=== PATIENT | female | born 1955 | race Caucasian/White ===

== ENCOUNTER → 2019-11-27 12:15 | Outpatient (CLI) | payer MEDICARE, SELFPAY ==
--- NOTE | ~2019-11-27 | MR_ITS ---
EXAMINATION: MR lumbar spine wo con DATE: 11/27/2019 13:00 INDICATION: Lumbar spondylosis with radiculopathy. Low back pain. Left leg pain. TECHNIQUE: Magnetic resonance imaging (MRI) of the lumbar spine was performed without intravenous con trast. Sequences included sagittal T2-weighted FSE, sagittal T2-weighted FS FSE, sagittal T1-weighted FSE, and axial T2-weighted FSE. COMPARISON: Lumbar spine MRI 09/25/2017 FINDINGS: There is 4 degrees levocurvature of lumbar spine. There is 4 mm retrolisthesis of L4 on L5. There is a chronic compression fracture of T12 with 2/5 loss of height centrally. There is severely decreased disc height at L4-L5 with interbody fusion. There is mildly decreased disc height at L3-L4 and severely decreased disc height at L5-S1. The distal spinal cord signal intensity is normal. The c onus medullaris is at L1. The following disc levels are specifically discussed: L1-L2: The disc does not extend beyond the endplate margin. There is moderate left facet joint osteoa rthritis. There is mild left neural foraminal stenosis. There is no central canal stenosis. L2-L3: There is a left foraminal protrusion. There is severe right and moderate left facet joint oste oarthritis. There is mild left neural foraminal stenosis. There is no central canal stenosis. L3-L4: There is a central extrusion with 7 mm superior extension. There is severe bilateral facet holli nt osteoarthritis. There is mild bilateral neural foraminal stenosis. There is mild central canal purnima nosis. L4-L5: There is ankylosis of the facet joints with moderate hypertrophy. There is mild bilateral neur al foraminal stenosis. There is mild central canal stenosis. L5-S1: The disc is bulging and has an annular fissure. There is severe bilateral facet joint osteoart hritis. There is mild bilateral neural foraminal stenosis. There is mild central canal stenosis. IMPRESSION: 1. Severe lumbar spondylosis, stable from 09/25/2017. 2. Anterior and posterior fusion at L4-L5. Reviewed, dictated and finalized at location A.
== END ==
PROVIDERS: Visit Provider Nurse Practitioner Family
DX: M47.27 Other spondylosis with radiculopathy, lumbosacral region (principal); Z98.1 Arthrodesis status
CPT/HCPCS: 72148

== ENCOUNTER 2022-01-02 12:57 | Outpatient (RCR) | payer MEDICARE, SELFPAY | END 2022-03-19 08:11 | disposition home or self-care (01) | LOC: ANHDMC 12:57 | PROVIDERS: PCP Internal Medicine; Visit Provider Internal Medicine | DX: E11.65 Type 2 diabetes mellitus with hyperglycemia (principal); E78.5 Hyperlipidemia, unspecified; Z71.89 Other specified counseling | CPT/HCPCS: G0108 ==

== ENCOUNTER 2024-11-11 12:05 | Outpatient (CLI) | payer MEDICARE, SELFPAY ==
[2024-11-11 12:45] VITALS: PULSE 82; O2SAT 93
[2024-11-11 12:50] VITALS: PULSE 92; O2SAT 86
[2024-11-11 12:55] VITALS: PULSE 94; O2SAT 88
[2024-11-11 13:00] VITALS: PULSE 99; O2SAT 91
[2024-11-11 13:20] VITALS: PULSE 84; O2SAT 93
--- NOTE | 2024-11-11 13:44 | HOMEO2EVAL ---
Evaluation was performed at [facility] Home Oxygen Evaluation RC: Home Oxygen (O2) Evaluation Start: 11/11/24 13:36 Freq: Status: Active Protocol: RPE Activity Type Activity Date Activity User E-sign Co-sign Detail Recorded Client Recorded Date Recorded By Document 11/11/24 12:45 [email or web address] [email or web address] 11/11/24 13:44 DJO Document 11/11/24 12:50 [email or web address] [email or web address] 11/11/24 13:44 DJO Document 11/11/24 12:55 [email or web address] [email or web address] 11/11/24 13:44 DJO Document 11/11/24 13:00 [email or web address] [email or web address] 11/11/24 13:44 DJO Document 11/11/24 13:20 [email or web address] [email or web address] 11/11/24 13:44 DJO 11/11/24 11/11/24 11/11/24 12:45 12:50 12:55 Home O2 Evaluation [Oxygen] -Test Phase Resting Exercise Exercise -Oxygen Delivery Room Air Nasal Cannula -Oxygen Flow Rate (L/min) 1 [Pulse Oximetry] -Pulse Oximetry (90-100 %) 93 86 L 88 L [Pulse Rate] -Pulse Rate (60-100 beats/min) 82 92 94 [Evaluation] -Activity Tolerance [Exercise] -Ambulation Distance (feet) -Ambulation Distance (meters) [Charges] -Evaluation Charges O2 Evaluation by Pulmonary 11/11/24 11/11/24 13:00 13:20 Home O2 Evaluation [Oxygen] -Test Phase Exercise Resting -Oxygen Delivery Nasal Cannula Room Air -Oxygen Flow Rate (L/min) 2 [Pulse Oximetry] -Pulse Oximetry (90-100 %) 91 93 [Pulse Rate] -Pulse Rate (60-100 beats/min) 99 84 [Evaluation] -Activity Tolerance Fair [Exercise] -Ambulation Distance (feet) 250 -Ambulation Distance (meters) 76.19 [Charges] -Evaluation Charges
== END 2024-11-11 12:06 | disposition home or self-care (01) ==
PROVIDERS: PCP Internal Medicine; Visit Provider Internal Medicine
DX: R06.00 Dyspnea, unspecified (principal)
CPT/HCPCS: 94618

== ENCOUNTER 2024-12-02 01:48 | Day surgery (SDC) | payer MEDICARE, SELFPAY ==
[2024-08-04 14:17] VITALS: BMI 50.4
[2024-11-19 13:12] VITALS: BMI 49.9
--- OUTSIDE RECORDS SUMMARY | 2024-12-02 01:54 | XMS_ITS | Data Portability ---
Author Organization [facility] Address [address] [place] [address] Care Team Providers Care Explosive Operator Supervisor Name Role Phone DON ARELLANO Primary Care Provider [facility] Assessment Encounter Date Assessment Date Assessment LastModified by Organization Details LastModified Time 12/04/2023 12/04/2023 blood work. 6 minute walk records from previous clinic so we can see what is up with her screenings and immunizations follow up with me in 3 months continue current therapy for now all diagnosis and assessment and plan discussed [email or web address] Not available 12/05/2023 08:05:34 04/07/2024 04/07/2024 podiatry referral increase her insulin to 85 units of Tresiba healthy lifestyle care instructions other chronic problems discussed and chronic medicines remain unchanged follow up in 3 months [email or web address] Not available 04/11/2024 20:41:58 07/27/2024 07/27/2024 Blood work ordered states that she has a colonoscopy coming up on August 13. We will continue current therapy she will follow up in 4 months [email or web address] Not available 09/06/2024 21:54:13 10/29/2024 10/29/2024 Medications we will continue healthy lifestyle care instructions she needs to get her mammogram done she states that she has a colonoscopy set up for November blood work was reviewed 6 minute walk for her oxygen which she does not have with her today and follow up with me in 4 months [email or web address] Not available 10/29/2024 13:33:42 Plan of Treatment Reminders Order Date Submit Date Provider Last Modified By Organization Details Last Modified Time Details Appointments ANY 15 2024 10:15A Kit Arellano MD Not available Not available Not available Lab HbA1c (hemoglob in A1c), blood 2024 025 [facility], [address], [address], [place], [address], 08/20/2024 15:08:05 lipid panel, serum 2024 025 [facility], [address], [address], [place], [address], 08/20/2024 15:08:02 CMP, serum or plasma 2024 025 [facility], [address], [address], [place], [address], 08/20/2024 15:08:04 CBC w/ auto diff 2024 025 [facility], [address], [place], [address], 08/20/2024 15:08:07 TSH, ultra-sen sitive, serum 2024 025 [facility], [address], [place], [address], 08/20/2024 15:08:06 T3, free, serum or plasma 2024 025 [facility], [address], [place], [address], 08/20/2024 15:08:09 T4, free, serum 2024 025 [facility], [address], [place], [address], 08/20/2024 15:08:10 lipid panel, serum 2023 024 [facility], [address], [address], [place], [address], 12/05/2023 13:12:57 CMP, serum or plasma 2023 024 [facility], [address], [address], [place], [address], 12/05/2023 13:12:58 CBC w/ auto diff 2023 024 [facility], [address], [address], [place], [address], 12/05/2023 13:13:00 unlisted lab - T4, free 2023 024 [facility], [address], [address], [place], [address], 12/05/2023 13:12:57 T3, free, serum or plasma 2023 024 [facility], [address], [address], [place], [address], 12/05/2023 13:13:01 TSH, ultra-sen sitive, serum 2023 024 [facility], [address], [address], [place], [address], 12/05/2023 13:13:00 HbA1c (hemoglob in A1c), blood 2023 024 [facility], [address], [address], [place], [address], 12/05/2023 13:12:59 Referral podiatris t referral 2023 024 [facility] Carlos Alberto Huston DPM, [address], [address], [place], [address], 08/26/2024 17:58:04 Procedures colonosco py screening (PROC) 2023 024 [facility], [address], [place], [address], 09/21/2024 16:23:20 Surgeries None recorded. Imaging MAMMO, screening , digital, bilateral 2024 025 [facility] [place] (Imaging), [facility] [address], [place], [address], 12/01/2024 15:23:33 Medication Orders Tresiba FlexTouch U-100 insulin 100 unit/mL (3 mL) subcutane ous pen 2023 024 [email or web address] [facility], [address] [facility], [place], [address], 04/07/2024 12:59:23 Patient TargetsNo targets recorded. Patient Instructions Encounter Date Encounter Id Patient Instructions Last Modified By Organization Details Last Modified Time 12/04/2023 [id number] 6 minute walk test* [email or web address] Not available 04/15/2024 15:42:16 04/07/2024 [id number] A healthy lifestyle: care instructions [email or web address] Not available 04/07/2024 12:59:23 07/27/2024 [id number] A healthy lifestyle: care instructions [email or web address] Not available 07/27/2024 16:29:30 10/29/2024 [id number] 6 minute walk test* [email or web address] Not available 11/17/2024 14:12:55 A healthy lifestyle: care instructions [email or web address] Not available 10/29/2024 11:48:35 Reason for Referral Control Director Referral for Type 2 diabetes mellitus Referring Physician: Don Arellano, Internal Medicine, Encounter Date: 04/07/2024 Results Created Date Observation Date Name Description Value Unit Range Abnormal Flag Note LastModifiedBy Organization Detail LastModifiedTime 12/04/19 24 12/05/2023 LIPID PANEL cholesterol, total 194 mg/dL 100-19 9 Not Available [facility] ([facility]) [address] [place], [address], 12/05/2023 13:12:56 12/04/19 24 12/05/2023 LIPID PANEL triglyceride s 156 mg/dL 0-149 above high normal Not Available [facility] ([facility]) [address] [place], [address], 12/05/2023 13:12:56 12/04/19 24 12/05/2023 LIPID PANEL HDL cholesterol 59 mg/dL >39 Not Available [facility] ([facility]) [address] [place], [address], 12/05/2023 13:12:56 12/04/19 24 12/05/2023 LIPID PANEL VLDL cholesterol angelina 27 mg/dL 5-40 Not Available [facility] ([facility]) [address] [place], [address], 12/05/2023 13:12:56 12/04/19 24 12/05/2023 LIPID PANEL LDL chol calc ([facility]) 108 mg/dL 0-99 above high normal Not Available [facility] ([facility]) [address] [place], [address], 12/05/2023 13:12:56 12/04/19 24 12/05/2023 T4, FREE T4,free(dire ct) 1.42 NG/dL 0.82-1 .77 Not Available [facility] ([facility]) [address] [place], [address], 12/05/2023 13:12:57 12/04/19 24 12/05/2023 COMP. METAB OLIC PANEL (14) glucose 362 mg/dL 70-99 above high normal Not Available [facility] ([facility]) [address] [place], [address], 12/05/2023 13:12:58 12/04/19 24 12/05/2023 COMP. METAB OLIC PANEL (14) BUN 10 mg/dL 8-27 Not Available [facility] ([facility]) [address] [place], [address], 12/05/2023 13:12:58 12/04/19 24 12/05/2023 COMP. METAB OLIC PANEL (14) creatinine 0.87 mg/dL 0.57-1 .00 Not Available [facility] ([facility]) [address] [place], [address], 12/05/2023 13:12:58 12/04/19 24 12/05/2023 COMP. METAB OLIC PANEL (14) eGFR 72 mL/mi n/1.7 3 >59 Not Available [facility] ([facility]) [address] [place], [address], 12/05/2023 13:12:58 12/04/19 24 12/05/2023 COMP. METAB OLIC PANEL (14) BUN/creatini ne ratio 11 12-28 below low normal Not Available [facility] ([facility]) [address] [place], [address], 12/05/2023 13:12:58 12/04/19 24 12/05/2023 COMP. METAB OLIC PANEL (14) sodium 134 mmol/ L 134-14 4 Not Available [facility] ([facility]) [address] [place], [address], 12/05/2023 13:12:58 12/04/19 24 12/05/2023 COMP. METAB OLIC PANEL (14) potassium 4.8 mmol/ L 3.5-5. 2 Not Available [facility] ([facility]) [address] [place], [address], 12/05/2023 13:12:58 12/04/19 24 12/05/2023 COMP. METAB OLIC PANEL (14) chloride 92 mmol/ L 96-106 below low normal Not Available [facility] ([facility]) [address], [place], [address], 12/05/2023 13:12:58 12/04/19 24 12/05/2023 COMP. METAB OLIC PANEL (14) carbon dioxide, total 26 mmol/ L 20-29 Not Available [facility] ([facility]) [address], [place], [address], 12/05/2023 13:12:58 12/04/19 24 12/05/2023 COMP. METAB OLIC PANEL (14) calcium 9.6 mg/dL 8.7-10 .3 Not Available [facility] ([facility]) [address] [place], [address], 12/05/2023 13:12:58 12/04/19 24 12/05/2023 COMP. METAB OLIC PANEL (14) protein, total 7.8 g/dL 6.0-8. 5 Not Available [facility] ([facility]) [address] [place], [address], 12/05/2023 13:12:58 12/04/19 24 12/05/2023 COMP. METAB OLIC PANEL (14) albumin 3.8 g/dL 3.9-4. 9 below low normal Not Available [facility] ([facility]) [address] [place], [address], 12/05/2023 13:12:58 12/04/19 24 12/05/2023 COMP. METAB OLIC PANEL (14) globulin, total 4.0 g/dL 1.5-4. 5 Not Available [facility] ([facility]) [address], [place], [address], 12/05/2023 13:12:58 12/04/19 24 12/05/2023 COMP. METAB OLIC PANEL (14) bilirubin, total 0.3 mg/dL 0.0-1. 2 Not Available [facility] ([facility]) [address] [place], [address], 12/05/2023 13:12:58 12/04/19 24 12/05/2023 COMP. METAB OLIC PANEL (14) alkaline phosphatase 222 IU/L 44-121 above high normal Not Available [facility] ([facility]) [address] [place], [address], 12/05/2023 13:12:58 12/04/19 24 12/05/2023 COMP. METAB OLIC PANEL (14) AST (SGOT) 60 IU/L 0-40 above high normal Not Available [facility] ([facility]) [address] [place], [address], 12/05/2023 13:12:58 12/04/19 24 12/05/2023 COMP. METAB OLIC PANEL (14) ALT (SGPT) 58 IU/L 0-32 above high normal Not Available [facility] ([facility]) [address] [place], [address], 12/05/2023 13:12:58 12/04/19 24 12/05/2023 HEMOG LOBIN A1C hemoglobin A1C 12.5 % 4.8-5. 6 above high normal Predi abete s: 5.7 - 6.4 Diabe ivanna: >6.4 Glyce zeb contr ol for adult s with diabe ivanna: <7.0 Not Available [facility] ([facility]) [address] [place], [address], 12/05/2023 13:12:59 12/04/19 24 12/05/2023 TSH TSH 8.070 uIU/m L 0.450- 4.500 above high normal Not Available [facility] ([facility]) [address] [place], [address], 12/05/2023 13:13:00 12/04/19 24 12/05/2023 CBC WITH DIFFE RENTI AL/PL ATELE T WBC 12.7 x10e3 /uL 3.4-10 .8 above high normal Not Available [facility] ([facility]) [address] [facility], [place], [address], 12/05/2023 13:13:00 12/04/19 24 12/05/2023 CBC WITH DIFFE RENTI AL/PL ATELE T RBC 4.37 x10e6 /uL 3.77-5 .28 Not Available [facility] ([facility]) [address] [place], [address], 12/05/2023 13:13:00 12/04/19 24 12/05/2023 CBC WITH DIFFE RENTI AL/PL ATELE T hemoglobin 13.0 g/dL 11.1-1 5.9 Not Available [facility] ([facility]) [address] [facility], [place], [address], 12/05/2023 13:13:00 12/04/19 24 12/05/2023 CBC WITH DIFFE RENTI AL/PL ATELE T hematocrit 41.0 % 34.0-4 6.6 Not Available [facility] ([facility]) [address] [place], [address], 12/05/2023 13:13:00 12/04/19 24 12/05/2023 CBC WITH DIFFE RENTI AL/PL ATELE T MCV 94 fL 79-97 Not Available [facility] ([facility]) [address] [place], [address], 12/05/2023 13:13:00 12/04/19 24 12/05/2023 CBC WITH DIFFE RENTI AL/PL ATELE T MCH 29.7 pg 26.6-3 3.0 Not Available [facility] ([facility]) [address] [place], [address], 12/05/2023 13:13:00 12/04/19 24 12/05/2023 CBC WITH DIFFE RENTI AL/PL ATELE T MCHC 31.7 g/dL 31.5-3 5.7 Not Available [facility] ([facility]) [address] [facility], [place], [address], 12/05/2023 13:13:00 12/04/19 24 12/05/2023 CBC WITH DIFFE RENTI AL/PL ATELE T RDW 11.4 % 11.7-1 5.4 below low normal Not Available [facility] ([facility]) [address] [facility], [place], [address], 12/05/2023 13:13:00 12/04/19 24 12/05/2023 CBC WITH DIFFE RENTI AL/PL ATELE T platelets 324 x10e3 /uL 150-45 0 Not Available [facility] ([facility]) [address] [facility], [place], [address], 12/05/2023 13:13:00 12/04/19 24 12/05/2023 CBC WITH DIFFE RENTI AL/PL ATELE T neutrophils 63 % notest ab. Not Available [facility] ([facility]) [address] [facility], [place], [address], 12/05/2023 13:13:00 12/04/19 24 12/05/2023 CBC WITH DIFFE RENTI AL/PL ATELE T lymphs 29 % notest ab. Not Available [facility] ([facility]) [address] [place], [address], 12/05/2023 13:13:00 12/04/19 24 12/05/2023 CBC WITH DIFFE RENTI AL/PL ATELE T monocytes 4 % notest ab. Not Available [facility] ([facility]) [address] [place], [address], 12/05/2023 13:13:00 12/04/19 24 12/05/2023 CBC WITH DIFFE RENTI AL/PL ATELE T eos 2 % notest ab. Not Available [facility] ([facility]) [address] [place], [address], 12/05/2023 13:13:00 12/04/19 24 12/05/2023 CBC WITH DIFFE RENTI AL/PL ATELE T basos 1 % notest ab. Not Available [facility] ([facility]) [address] [place], [address], 12/05/2023 13:13:00 12/04/19 24 12/05/2023 CBC WITH DIFFE RENTI AL/PL ATELE T neutrophils (absolute) 8.0 x10e3 /uL 1.4-7. 0 above high normal Not Available [facility] ([facility]) [address] [place], [address], 12/05/2023 13:13:00 12/04/19 24 12/05/2023 CBC WITH DIFFE RENTI AL/PL ATELE T lymphs (absolute) 3.7 x10e3 /uL 0.7-3. 1 above high normal Not Available [facility] ([facility]) [address] [place], [address], 12/05/2023 13:13:00 12/04/19 24 12/05/2023 CBC WITH DIFFE RENTI AL/PL ATELE T monocytes(ab solute) 0.5 x10e3 /uL 0.1-0. 9 Not Available [facility] ([facility]) [address] [place], [address], 12/05/2023 13:13:00 12/04/19 24 12/05/2023 CBC WITH DIFFE RENTI AL/PL ATELE T eos (absolute) 0.3 x10e3 /uL 0.0-0. 4 Not Available [facility] ([facility]) [address] [place], [address], 12/05/2023 13:13:00 12/04/19 24 12/05/2023 CBC WITH DIFFE RENTI AL/PL ATELE T baso (absolute) 0.1 x10e3 /uL 0.0-0. 2 Not Available [facility] ([facility]) [address] [facility], [place], [address], 12/05/2023 13:13:00 12/04/19 24 12/05/2023 CBC WITH DIFFE RENTI AL/PL ATELE T immature granulocytes 1 % notest ab. Not Available [facility] ([facility]) [address] [facility], [place], [address], 12/05/2023 13:13:00 12/04/19 24 12/05/2023 CBC WITH DIFFE RENTI AL/PL ATELE T immature grans (abs) 0.1 x10e3 /uL 0.0-0. 1 Not Available [facility] ([facility]) [address] [facility], [place], [address], 12/05/2023 13:13:00 12/04/19 24 12/05/2023 TRIIO DOTHY VICKY E (T3), FREE triiodothyro nine (T3), free 3.6 pg/mL 2.0-4. 4 Not Available [facility] ([facility]) [address] [place], [address], 12/05/2023 13:13:01 08/20/19 25 08/20/2024 LIPID PANEL cholesterol, total 172 mg/dL 100-19 9 Not Available [facility] ([facility]) [address] [place], [address], 08/20/2024 15:08:02 08/20/19 25 08/20/2024 LIPID PANEL triglyceride s 143 mg/dL 0-149 Not Available [facility] ([facility]) [address] [place], [address], 08/20/2024 15:08:02 08/20/19 25 08/20/2024 LIPID PANEL HDL cholesterol 49 mg/dL >39 Not Available [facility] ([facility]) [address] [place], [address], 08/20/2024 15:08:02 08/20/19 25 08/20/2024 LIPID PANEL VLDL cholesterol angelina 25 mg/dL 5-40 Not Available [facility] ([facility]) [address] [place], [address], 08/20/2024 15:08:02 08/20/19 25 08/20/2024 LIPID PANEL LDL chol calc ([facility]) 98 mg/dL 0-99 Not Available [facility] ([facility]) [address] [place], [address], 08/20/2024 15:08:02 08/20/19 25 08/20/2024 COMP. METAB OLIC PANEL (14) glucose 209 mg/dL 70-99 above high normal Not Available [facility] ([facility]) [address] [place], [address], 08/20/2024 15:08:04 08/20/19 25 08/20/2024 COMP. METAB OLIC PANEL (14) BUN 16 mg/dL 8-27 Not Available [facility] ([facility]) [address] [place], [address], 08/20/2024 15:08:04 08/20/19 25 08/20/2024 COMP. METAB OLIC PANEL (14) creatinine 0.89 mg/dL 0.57-1 .00 Not Available [facility] ([facility]) [address] [place], [address], 08/20/2024 15:08:04 08/20/19 25 08/20/2024 COMP. METAB OLIC PANEL (14) eGFR 70 mL/mi n/1.7 3 >59 Not Available [facility] ([facility]) [address] [facility], [place], [address], 08/20/2024 15:08:04 08/20/19 25 08/20/2024 COMP. METAB OLIC PANEL (14) BUN/creatini ne ratio 18 12-28 Not Available [facility] ([facility]) [address] [facility], [place], [address], 08/20/2024 15:08:04 08/20/19 25 08/20/2024 COMP. METAB OLIC PANEL (14) sodium 138 mmol/ L 134-14 4 Not Available [facility] ([facility]) [address] [facility], [place], [address], 08/20/2024 15:08:04 08/20/19 25 08/20/2024 COMP. METAB OLIC PANEL (14) potassium 4.6 mmol/ L 3.5-5. 2 Not Available [facility] ([facility]) [address] [facility], [place], [address], 08/20/2024 15:08:04 08/20/19 25 08/20/2024 COMP. METAB OLIC PANEL (14) chloride 97 mmol/ L 96-106 Not Available [facility] ([facility]) [address] [facility], [place], [address], 08/20/2024 15:08:04 08/20/19 25 08/20/2024 COMP. METAB OLIC PANEL (14) carbon dioxide, total 26 mmol/ L 20-29 Not Available [facility] ([facility]) [address] [facility], [place], [address], 08/20/2024 15:08:04 08/20/19 25 08/20/2024 COMP. METAB OLIC PANEL (14) calcium 8.9 mg/dL 8.7-10 .3 Not Available [facility] ([facility]) [address] [facility], [place], [address], 08/20/2024 15:08:04 08/20/19 25 08/20/2024 COMP. METAB OLIC PANEL (14) protein, total 7.2 g/dL 6.0-8. 5 Not Available [facility] ([facility]) [address] [place], [address], 08/20/2024 15:08:04 08/20/19 25 08/20/2024 COMP. METAB OLIC PANEL (14) albumin 3.8 g/dL 3.9-4. 9 below low normal Not Available [facility] ([facility]) [address] [place], [address], 08/20/2024 15:08:04 08/20/19 25 08/20/2024 COMP. METAB OLIC PANEL (14) globulin, total 3.4 g/dL 1.5-4. 5 Not Available [facility] ([facility]) [address] [place], [address], 08/20/2024 15:08:04 08/20/19 25 08/20/2024 COMP. METAB OLIC PANEL (14) bilirubin, total <0.2 mg/dL 0.0-1. 2 Not Available [facility] ([facility]) [address] [place], [address], 08/20/2024 15:08:04 08/20/19 25 08/20/2024 COMP. METAB OLIC PANEL (14) alkaline phosphatase 208 IU/L 44-121 above high normal Not Available [facility] ([facility]) [address] [place], [address], 08/20/2024 15:08:04 08/20/19 25 08/20/2024 COMP. METAB OLIC PANEL (14) AST (SGOT) 33 IU/L 0-40 Not Available [facility] ([facility]) [address] [place], [address], 08/20/2024 15:08:04 08/20/19 25 08/20/2024 COMP. METAB OLIC PANEL (14) ALT (SGPT) 33 IU/L 0-32 above high normal Not Available [facility] ([facility]) [address] [place], [address], 08/20/2024 15:08:04 08/20/19 25 08/20/2024 HEMOG LOBIN A1C hemoglobin A1C 7.9 % 4.8-5. 6 above high normal Predi abete s: 5.7 - 6.4 Diabe ivanna: >6.4 Glyce zeb contr ol for adult s with diabe ivanna: <7.0 Not Available [facility] ([facility]) [address] [place], [address], 08/20/2024 15:08:05 08/20/19 25 08/20/2024 TSH TSH 6.400 uIU/m L 0.450- 4.500 above high normal Not Available [facility] ([facility]) [address] [place], [address], 08/20/2024 15:08:06 08/20/19 25 08/20/2024 CBC WITH DIFFE RENTI AL/PL ATELE T WBC 11.1 x10e3 /uL 3.4-10 .8 above high normal Not Available [facility] ([facility]) [address] [place], [address], 08/20/2024 15:08:07 08/20/19 25 08/20/2024 CBC WITH DIFFE RENTI AL/PL ATELE T RBC 3.86 x10e6 /uL 3.77-5 .28 Not Available [facility] ([facility]) [address] [place], [address], 08/20/2024 15:08:07 08/20/19 25 08/20/2024 CBC WITH DIFFE RENTI AL/PL ATELE T hemoglobin 11.3 g/dL 11.1-1 5.9 Not Available [facility] ([facility]) [address] [facility], [place], [address], 08/20/2024 15:08:07 08/20/19 25 08/20/2024 CBC WITH DIFFE RENTI AL/PL ATELE T hematocrit 35.8 % 34.0-4 6.6 Not Available [facility] ([facility]) [address] [facility], [place], [address], 08/20/2024 15:08:07 08/20/19 25 08/20/2024 CBC WITH DIFFE RENTI AL/PL ATELE T MCV 93 fL 79-97 Not Available [facility] ([facility]) [address] [facility], [place], [address], 08/20/2024 15:08:07 08/20/19 25 08/20/2024 CBC WITH DIFFE RENTI AL/PL ATELE T MCH 29.3 pg 26.6-3 3.0 Not Available [facility] ([facility]) [address] [facility], [place], [address], 08/20/2024 15:08:07 08/20/19 25 08/20/2024 CBC WITH DIFFE RENTI AL/PL ATELE T MCHC 31.6 g/dL 31.5-3 5.7 Not Available [facility] ([facility]) [address] [facility], [place], [address], 08/20/2024 15:08:07 08/20/19 25 08/20/2024 CBC WITH DIFFE RENTI AL/PL ATELE T RDW 12.2 % 11.7-1 5.4 Not Available [facility] ([facility]) [address] [facility], [place], [address], 08/20/2024 15:08:07 08/20/19 25 08/20/2024 CBC WITH DIFFE RENTI AL/PL ATELE T platelets 344 x10e3 /uL 150-45 0 Not Available [facility] ([facility]) [address] [facility], [place], [address], 08/20/2024 15:08:07 08/20/19 25 08/20/2024 CBC WITH DIFFE RENTI AL/PL ATELE T neutrophils 57 % notest ab. Not Available [facility] ([facility]) [address] [facility], [place], [address], 08/20/2024 15:08:07 08/20/19 25 08/20/2024 CBC WITH DIFFE RENTI AL/PL ATELE T lymphs 31 % notest ab. Not Available [facility] ([facility]) [address] [facility], [place], [address], 08/20/2024 15:08:07 08/20/19 25 08/20/2024 CBC WITH DIFFE RENTI AL/PL ATELE T monocytes 6 % notest ab. Not Available [facility] ([facility]) [address] [facility], [place], [address], 08/20/2024 15:08:07 08/20/19 25 08/20/2024 CBC WITH DIFFE RENTI AL/PL ATELE T eos 4 % notest ab. Not Available [facility] ([facility]) [address] [facility], [place], [address], 08/20/2024 15:08:07 08/20/19 25 08/20/2024 CBC WITH DIFFE RENTI AL/PL ATELE T basos 1 % notest ab. Not Available [facility] ([facility]) [address] [facility], [place], [address], 08/20/2024 15:08:07 08/20/19 25 08/20/2024 CBC WITH DIFFE RENTI AL/PL ATELE T neutrophils (absolute) 6.4 x10e3 /uL 1.4-7. 0 Not Available [facility] ([facility]) [address] [facility], [place], [address], 08/20/2024 15:08:07 08/20/19 25 08/20/2024 CBC WITH DIFFE RENTI AL/PL ATELE T lymphs (absolute) 3.4 x10e3 /uL 0.7-3. 1 above high normal Not Available [facility] ([facility]) [address] [facility], [place], [address], 08/20/2024 15:08:07 08/20/19 25 08/20/2024 CBC WITH DIFFE RENTI AL/PL ATELE T monocytes(ab solute) 0.7 x10e3 /uL 0.1-0. 9 Not Available [facility] ([facility]) [address] [place], [address], 08/20/2024 15:08:07 08/20/19 25 08/20/2024 CBC WITH DIFFE RENTI AL/PL ATELE T eos (absolute) 0.5 x10e3 /uL 0.0-0. 4 above high normal Not Available [facility] ([facility]) [address] [place], [address], 08/20/2024 15:08:07 08/20/19 25 08/20/2024 CBC WITH DIFFE RENTI AL/PL ATELE T baso (absolute) 0.1 x10e3 /uL 0.0-0. 2 Not Available [facility] ([facility]) [address] [place], [address], 08/20/2024 15:08:07 08/20/19 25 08/20/2024 CBC WITH DIFFE RENTI AL/PL ATELE T immature granulocytes 1 % notest ab. Not Available [facility] ([facility]) [address] [place], [address], 08/20/2024 15:08:07 08/20/19 25 08/20/2024 CBC WITH DIFFE RENTI AL/PL ATELE T immature grans (abs) 0.1 x10e3 /uL 0.0-0. 1 Not Available [facility] ([facility]) [address] [facility], [place], [address], 08/20/2024 15:08:07 08/20/19 25 08/20/2024 TRIIO DOTHY VICKY E (T3), FREE triiodothyro nine (T3), free 2.9 pg/mL 2.0-4. 4 Not Available [facility] ([facility]) [address] [facility], [place], [address], 08/20/2024 15:08:09 08/20/19 25 08/20/2024 T4,FR EE(DI RECT) T4,free(dire ct) 1.12 NG/dL 0.82-1 .77 Not Available [facility] ([facility]) [address] [facility], [place], [address], 08/20/2024 15:08:10 05/18/20 24 11/09/2021 MAMMO , scree nabor, tomos ynthe sis, bilat eral No observ ation record ed. BARCODE Not Available 2023 14:15:43 05/18/20 24 08/17/2021 CT, chest , w/o contr ast No observ ation record ed. BARCODE Not Available 2023 14:15:43 05/18/20 24 08/12/2020 MAMMO , diagn ostic , tomos ynthe sis, bilat eral No observ ation record ed. BARCODE Not Available 2023 14:15:43 05/18/20 24 08/12/2020 DEXA No observ ation record ed. BARCODE Not Available 2023 14:15:43 05/18/20 24 05/04/2015 MAMMO , scree nabor, digit al, bilat eral No observ ation record ed. BARCODE Not Available 2023 14:15:43 Result Notes None recorded. Problems Name Problem SNOMED Code Status Onset Date Resolution Date Notes Provider Name and Address Organization Details Recorded Time Essential hypertension 47834405 Active 2023 Niko Ovalles [place] null, [place] - [facility] 4 14:45:29 Low back pain 751315696 Active 2023 Niko Ovall[place], [place] [facility] 4 14:45:30 Obesity 559294868 Active 2023 Niko Ovall[place], [place] [facility] 4 14:45:31 Diabetes mellitus screening Active 2023 Don Arellano MD Attn: Aryanezra gibson,[address] [facility], [place], [address], [place] - [facility] 4 08:04:09 Dyspnea 615095842 Active 2023 Don Arellano MD Attn: Aryanezra g,[address] [facility], [place], [address], [place] [facility] 4 08:04:10 Anxiety 98018677 Active 2023 Don Arellano MD Attn: Kathy g,[address] [facility], [place], [address], [place] [facility] 4 08:04:14 Morbid obesity 661299596 Active 2023 Don Arellano MD Attn: Kathy g,[address] [facility], [place], [address], [place] [facility] 4 08:04:14 Type 2 diabetes mellitus 43800592 Active 2023 Niko Ovall[place] [facility] 4 15:57:34 Migraine 21999241 Active 2023 Don Arellano MD Attn: Accountezra g,[address] [facility], [place], [address], [place] [facility] 4 20:41:16 Hypothyroidism 53131133 Active 2023 Don Arellano MD Attn: Kathy g,[address] [facility], [place], [address], [place] [facility] 4 20:41:17 Gastroesophage al reflux disease without esophagitis 958085507 Active 2023 Don Arellano MD Attn: Kathy gibson,[address] [facility] [facility], [place], [address], [facility] - [facility] 4 20:41:18 Problem Notes None recorded. Medical Equipment None Reported. Allergies Allergen ID Allergen Name Allergen Category Reaction Reaction Severity Criticality Documentation Date Start Date Code Code System Note Provider Name and Address Organization Details Recorded Time 170624 Substance with sulfonami de structure and antibacte rial mechanism of action (substanc e) medicatio n Not available Not available Not available 10/11/2023 05363 8003 SNOMED Marizol CELY Denise null, [place] - [facility] 4 18:01:21 618422 Ansaid medicatio n Not available Not available Not available 10/11/2023 68795 1 RxNorm Marizol CELY Denise null, [place] - [facility] 4 18:01:29 389844 Product containin g 3-hydroxy -3-methyl glutaryl- coenzyme A reductase inhibitor (product) medicatio n muscle cramps Not available Not available 10/07/2024 11813 009 SNOMED stoma ch cramp s and bad loose stool s Niko Ovalles MA null, [place] - [facility] 5 11:10:32 Medications Name Sig Start Date Stop Date Status Note LastModified by Organization Details LastModified Time naltrexon e 3mg capsules TAKE ONE CAPSULE BY MOUTH TWICE DAILY active Not Available Not Available No t Available cyclobenz aprine 10 mg tablet TAKE 1 TABLET BY MOUTH THREE TIMES DAILY FOR 30 DAYS active Not Available Not Available No t Available doxycycli ne hyclate 100 mg capsule TAKE 1 CAPSULE BY MOUTH TWICE DAILY FOR 7 DAYS 12/16 completed Not Available Not Available Not Available atorvasta tin 20 mg tablet TAKE 1 TABLET BY MOUTH ONCE DAILY 12/16 completed Not Available Not Available Not Available azithromy sarah 250 mg tablet Take 1 dose pk by oral route as directed . 07/27 completed Not Available Not Available Not Available amitripty line 75 mg tablet TAKE 1 TABLET BY MOUTH ONCE DAILY active Not Available Not Available No t Available levothyro xine 75 mcg tablet TAKE 1 TABLET BY MOUTH ONCE DAILY active Not Available Not Available No t Available levothyro xine 50 mcg tablet TAKE 1 TABLET BY MOUTH ONCE DAILY 08/25 completed Not Available Not Available Not Available losartan 25 mg tablet TAKE 1 TABLET BY MOUTH ONCE DAILY active Not Available Not Available No t Available gabapenti n 300 mg capsule TAKE 1 CAPSULE BY MOUTH AT BEDTIME FOR 30 DAYS active Not Available Not Available No t Available omeprazol e 20 mg capsule,d elayed release TAKE 1 CAPSULE BY MOUTH ONCE DAILY active Not Available Not Available No t Available methylpre dnisolone 4 mg tablets in a dose pack TAKE BY MOUTH DIRECTED ON INSIDE OF PACKAGE 12/16 completed Not Available Not Available Not Available fluticaso ne propionat e 50 mcg/actua tion nasal spray,alyssa pension USE 2 SPRAY(S) IN EACH NOSTRIL ONCE DAILY active Not Available Not Available No t Available cholestyr amine (with sugar) 4 gram powder for susp in a packet DISSOLVE AND TAKE ONE POWDER BY MOUTH DAILY active Not Available Not Available No t Available rosuvasta tin 20 mg tablet TAKE 1 TABLET BY MOUTH ONCE DAILY 12/16 completed changed to atorvast atin 10mg see insuranc e correspo ndence. Not Available Not Available Not Available topiramat e 50 mg tablet TAKE 1 TABLET BY MOUTH AT BEDTIME FOR ONE WEEK, THEN INCREASE TO ONE TABLET TWICE DAILY 12/16 completed does not see speciali st for this Not Available Not Available Not Available duloxetin e 30 mg capsule,d elayed release TAKE 1 CAPSULE BY MOUTH ONCE DAILY ALONG WITH 60 MG CAPSULE active Not Available Not Available No t Available duloxetin e 60 mg capsule,d elayed release TAKE 1 CAPSULE BY MOUTH ONCE DAILY active Not Available Not Available No t Available Tresiba FlexTouch U-100 insulin 100 unit/mL (3 mL) subcutane ous pen INJECT 65 UNITS SUBCUTAN EOUSLY ONCE DAILY active Not Available Not Available No t Available Admelog SoloStar U-100 Insulin lispro 100 unit/mL subcutane ous pen INJECT 10 UNITS SUBCUTAN EOUSLY THREE TIMES DAILY WITH MEALS active Not Available Not Available No t Available Nexletol 180 mg tablet TAKE 1 TABLET BY MOUTH ONCE DAILY active Not Available Not Available No t Available Dexcom G7 Deicer Element Winder Machine USE DIRECTED FOR BLOOD SUGAR active Not Available Not Available No t Available Dexcom G7 Sensor device CHANGE SENSOR EVERY 10 DAYS active Not Available Not Available No t Available Ozempic 0.25 mg or 0.5 mg (2 mg/3 mL) subcutane ous pen injector INJECT 1/2 (ONE-FELIPE F) MG ONCE A WEEK FOR 4 WEEKS 12/16 completed Not Available Not Available Not Available Vitals Date Recorded Body height Body mass index (BMI) Body weight Heart rate Oxygen saturation Oxygen saturation in Arterial blood by Pulse oximetry Systolic And Diastolic Provider Name and Address Organization Details Last Updated DateTime 5 161.29 cm 49.4 kg/m2 171670. 36 g 93 /min 95 % 95 % 114/74 mm[Hg] Mercedes Mariscal MA [facility] 5 15:44:11 Date Recorded Body height Body mass index (BMI) Body weight Heart rate Oxygen saturation Oxygen saturation in Arterial blood by Pulse oximetry Systolic And Diastolic Provider Name and Address Organization Details Last Updated DateTime 5 161.29 cm 49.8 kg/m2 140129. 26 g 77 /min 91 % 91 % 134/70 mm[Hg] Enedina Coburn MA [facility] 5 10:28:13 Date Recorded Body height Body mass index (BMI) Body weight Heart rate Oxygen saturation Oxygen saturation in Arterial blood by Pulse oximetry Systolic And Diastolic Provider Name and Address Organization Details Last Updated DateTime 4 161.29 cm 45.7 kg/m2 700258. 84 g 85 /min 90 % 90 % 122/70 mm[Hg] Enedina Coburn MA [facility] 4 14:08:29 Date Recorded Body height Body mass index (BMI) Body weight Heart rate Oxygen saturation Oxygen saturation in Arterial blood by Pulse oximetry Systolic And Diastolic Provider Name and Address Organization Details Last Updated DateTime 4 161.29 cm 46.9 kg/m2 470420. 63 g 87 /min 90 % 90 % 132/64 mm[Hg] Enedina Coburn MA [facility] 4 10:54:40 Social History Question Answer Notes LastModified by Organizat ion Details LastModified Time Tobacco Smoking Status Never Smoker Enedina Coburn MA null [facility] 12/04/2023 14:05:10 Do You Have An Advance Directive? Yes Information not available 12/04/2023 Are You Blind Or Do You Have Difficulty Seeing? Yes Glasses Information not available 12/04/2023 What Is Your Level Of Caffeine Consumption? Heavy Information not available 12/04/2023 In The 14 Days Before Symptom Onset, Have You Had Close Contact With A Laboratory-confir med COVID-19 While That Case Was Ill? No Information not available 12/04/2023 In The 14 Days Before Symptom Onset, Have You Had Close Contact With A Person Who Is Under Investigation For COVID-19 While That Person Was Ill? No Information not available 12/04/2023 Have You Been To An Area Known To Be High Risk For COVID-19? No Information not available 12/04/2023 Are You Deaf Or Do You Have Serious Difficulty Hearing? Yes A Little Bit Information not available 12/04/2023 What Type Of Diet Are You Following? REGULAR No [employer] Information not available 12/04/2023 Are There Any Guns Present In Your Home? No Information not available 12/04/2023 What Was The Date Of Your Most Recent Tobacco Screening? 10/29/2024 Information not available 10/29/2024 What Is Your Relationship Status? Information not available 12/04/2023 Do You Use Your Seat Belt Or Car Seat Routinely? Yes Information not available 12/04/2023 Do You Have Smoke And Carbon Monoxide Detectors In Your Home? Yes Information not available 12/04/2023 Do You Use Sunscreen Routinely? Yes Information not available 12/04/2023 Has Tobacco Cessation Counseling Been Provided? No Information not available 12/04/2023 Sex: Female Functional Status Question Answer Note LastModified by Organizat ion Details LastModified Time Do you use any illicit or recreational drugs? No Information not available 12/04/2023 Do you or have you ever used any other forms of tobacco or nicotine? No Information not available 12/04/2023 What is your level of alcohol consumption? Occasional Information not available 12/04/2023 Are you currently employed? No Information not available 12/04/2023 Are you able to care for yourself? Yes Information n ot available 12/04/2023 What is your exercise level? None Information not available 12/04/2023 Mental Status Question Answer Note LastModified by Organizat ion Details LastModified Time Do you feel stressed (tense, restless, nervous, or anxious, or unable to sleep at night)? [id number] Sleeping disorder Information not available 12/04/2023 Family History Relationship Description Onset Age of this Age Resolved Age Notes LastModified by Organization Details LastModified Time Father Cerebrovascu lar accident [email or web address] Not available 11:38:18 Father Hypertensive disorder [email or web address] Not available 2024 11:38:28 Mother Hypertensive disorder [email or web address] Not available 2024 11:38:28 Mother Sick sinus syndrome [email or web address] Not available 2024 11:38:43 Mother Diabetes mellitus [email or web address] Not available 2024 11:38:51 Medical History Condition Response Coronary Artery Disease N Other N Atrial Fibrillation N High Blood Pressure Y Depression Y COPD N Blood Clots N Anxiety Disorder Y Muscle, Joint, or Bone Problems Y Acid Reflux (GERD) N Cancer N Stroke N High Cholesterol Y Liver Disease N Headaches Y Kidney or Bladder Problems N Thyroid Problems N GI Problems Y Have you had a mammogram in the last yea r? N Skin Problems Y Anemia N Heart Attack ([place]) N Diabetes Y Seizures/Epilepsy N Have you had a colonoscopy in the last 1 0 years? Y Asthma N Allergies Y Have you had a PSA blood test in the las t year? N Hepatitis N Osteoporosis N Heart Failure N Gynecological History Statement/Question Response If Post Menopausal, Age at Menopause 45 Obstetrics History GPAL:G 2 P 2 0 0 2 Type Value Full Term 2 Living 2 Total 2 Immunizations Vaccine Type Date Status Note Provider Donis luis and Address Organization Details Recorded Time Influenza, split virus, quadrivalent, preservative 8 completed PORFIRIO [place], [place] - [facility] 12/06/2023 10:22:07 Influenza, high-dose, quadrivalent, PF 2 completed P[place]FIR[place], [place] [facility] 12/06/2023 10:22:07 Influenza, high-dose, quadrivalent, PF 0 completed [place] [facility] 12/06/2023 10:22:07 Influenza, high-dose, quadrivalent, PF 1 [place] [facility] 12/06/2023 10:22:07 COVID-19 vaccine, vector-nr, rS-Ad26, PF, 0.5 mL 1 [place] [facility] 12/06/2023 10:22:07 COVID-19 vaccine, vector-nr, rS-Ad26, PF, 0.5 mL 1 [place] [facility] 12/06/2023 10:22:07 COVID-19, mRNA, LNP-S, bivalent, PF, 50 mcg/0.5 mL or 25mcg/0.25 mL dose 2 completed P[place]FIR[place] [facility] 12/06/2023 10:22:07 Influenza, split virus, trivalent, preservative 4 completed [place] [facility] 12/06/2023 10:22:07 Influenza, split virus, quadrivalent, PF 5 completed [place]FIR[place] [facility] 12/06/2023 10:22:07 Influenza, split virus, quadrivalent, PF 8 completed [place] [facility] 12/06/2023 10:22:07 zoster recombinant 4 completed Tammy Alb[place], [place] [facility] 06/04/2024 11:32:44 Pneumococcal conjugate PCV20, polysaccharide [id number] conjugate, adjuvant, PF 4 completed [place] [facility] 06/04/2024 11:32:44 RSV, recombinant, protein subunit RSVpreF, adjuvant reconstituted, 0.5 mL, PF 4 completed Tam[place] [facility] 06/04/2024 11:32:44 zoster recombinant 5 completed Not Available [facility] 10/29/2024 10:20:58 COVID-19, mRNA, LNP-S, PF, corine-sucrose, 30 mcg/0.3 mL 5 completed Not Available [facility] 10/29/2024 10:20:58 Influenza, high-dose, trivalent, PF 4 completed Don Arellano MD Attn: Accounting,[address] [place], [address], [facility] 04/11/2024 20:37:11 Past Encounters Encounter ID Performer Location Encounter Start Date Encounter Closed Date Diagnosis/Indication Diagnosis SNOMED-CT Code Diagnosis ICD10 Code Diagnosis Note [id number] Don Arellano MD [facility] (Adult Med) [address] [place] [address] 12/04/2023 13:44:56 12/04/2023 15:05:18 Low back pain 026608291 M54.50 Essential hypertension 06964449 I10 Obesity 009536502 E66.9 Diabetes m ellitus screening 422833585 Z13.1 Dyspnea 455388986 R06.00 Morbid obesity 321823049 E66.01 Anxiety 26563180 F41.9 Hyperlipidemia 76647884 E78.5 [id number] Don Arellano MD [facility] (Adult Med) [address] [place] [address] 04/07/2024 10:28:26 04/07/2024 11:49:38 Morbid obesity 037506703 E66.01 Screening for malignant neoplasm of colon 321836938 Z12.11 Type 2 stefan betes mellitus 78292553 E11.9 Administra tion of influenza vaccine 69813070 Z23 Essential hypertension 33568961 I10 Gastroesop hageal reflux disease without esophagitis 844773241 K21.9 Hypothyroidism 23613592 E03.9 Migraine 50664785 G43.90 9 [id number] Don Arellano MD [facility] [address] [place] [address] 07/27/2024 15:30:08 07/27/2024 16:20:50 Body mass index 40+ - severely obese 021255653 Z68.42 Morbid obesity 366973170 E66.01 Essential hypertension 32937209 I10 Hypothyroidism 62510237 E03.9 Type 2 stefan betes mellitus 86034059 E11.9 Gastroesop hageal reflux disease without esophagitis 199123574 K21.9 Migraine 59577047 G43.90 9 Anxiety 26724679 F41.9 [id number] Don Arellano MD [facility] Ankit Hernadez [address] [place] [address] 10/29/2024 10:18:47 10/29/2024 10:49:06 Obese class III 640971867 E66.813 BMI 49.8 Migraine 58013489 G43.90 9 Gastroesop hageal reflux disease without esophagitis 746296874 K21.9 Morbid obesity 075643657 E66.01 Type 2 stefan betes mellitus 30172261 E11.9 Hypothyroidism 04196446 E03.9 Anxiety 80913192 F41.9 Essential hypertension 97716651 I10 Breast aileen plasm screening status 093984735 Z12.31 Dyspnea 818198314 R06.00 Health Concerns Section Related Observation LastModified by Organization Detai ls LastModified Time None Recorded Concern Status LastModified by Organization Details LastModified Time None Recorded Advance Directives Directive Y: Payers Insurance Date Sequence Insurance Name Policy Number Policy Brooks Covered Member ID Brooks Member ID Guarantor Name 07/27/2024 2 [place] Ivelisse Rivera [id number] Ivelisse Rivera 10/29/2024 1 [employer] - [place] (MEDICARE REPLACEMENT/ ADVANTAGE - HMO) [id number] Ivelisse Rivera [id number] Ivelisse Rivera Notes Date Note Type Note Provider Name and Address Organization Details Recorded Time 12/04/2023 text/html 68-year-old foll ow up on medical problems chronic back pain stems from a diskitis in the past along with some degenerative arthritis. Hypertension no headache or dizziness hypothyroid no heat or cold intolerance obesity does try to lose weight caloric restriction she has had dyspnea has been on oxygen in the past but she refused to wear it for awhile now she is getting more short of breath anxiety maintained on medication has been doing fairly well with the low back pain she does see pain management GERD no nausea no vomiting Don Arellano MD Attn: Accounting, [address] [facility], [place], [address], [place] [facility] 12/05/2023 08:05:56 04/07/2024 text/html diabetes sugars are still 150-170. Sleep apnea using her CPAP and feels better when she does. Obesity struggles losing weight hypertension no headache no dizziness her low back pain is stable anxiety is doing fine with no side effects of medications. GERD no nausea no vomiting. Migraines have been stable. Hypothyroid no heat or cold intolerance Don Arellano MD Attn: Accounting, [address] [facility], [place], [address], [place] [facility] 04/11/2024 20:42:18 07/27/2024 text/html If for follow up of her medical problems her anxiety has been doing fine no breakthrough and migraines GERD no nausea vomiting it was not been any heartburn. Diabetes needs an A1c but no polyphagia polydipsia does not really take her sugars at home like she should. Hypothyroid she is always a little bit tired but she has had no heat or cold intolerance. Hypertension her blood pressure looks good controlled no headache or dizziness. Obesity struggles with that she is also seeing pain management for her back pain does not tolerate statins Don Arellano MD Attn: Accounting, [address] [facility], [place], [address], [place] [facility] 09/06/2024 21:54:31 10/29/2024 text/html Migraine stable back pain bothers her from time to time she has had some anxiety that comes and goes but no SI or HI blood sugars have been doing okay her A1c was 7.9 obesity struggles losing weight her GERD has been doing fine Don Arellano MD Attn: Accounting, [address] [facility], [place], [address], [place] [facility] 10/29/2024 13:34:06 OBGyn Episode No OBEpisode recorded.
--- OUTSIDE RECORDS SUMMARY | 2024-12-02 01:54 | XMS_ITS | Data Portability ---
Author Organization [facility] [employer], Main Office Address [address] [place] [address] Assessment Encounter Date Assessment Date Assessment LastModified by Organization Details LastModified Time 10/03/2022 10/03/2022 Blood work for biochemical management of disease processes and medications anticipating that try to get her on GLP 1 agent for weight loss and diabetic control 6 minute walk follow-up with me in either 4 weeks after injectable started or 4 months [email or web address] Not available 10/13/2022 18:48:49 01/22/2023 01/22/2023 Blood work ordered switch to Crestor obesity discussed as well as the other diagnosis in the assessment and plan of today's note follow-up 4 months Not available 01/22/2023 12:21:54 Plan of Treatment Reminders Order Date Submit Date Provider Last Modified By Organization Details Last Modified Time Details Appointments None recorded. Lab HbA1c (hemoglobin A1c), blood 2022 023 [email or web address] [facility] (Lab), [address] [place], [address], 4 18:20:29 CMP, serum or plasma 2022 023 [facility] (Lab), [address] [place], [address], 3 14:31:39 lipid panel, serum 2022 023 [facility] (Lab), [address] [place], [address], 3 14:31:43 CBC w/ auto diff 2022 023 [facility] (Lab), [address] [place], [address], 3 14:16:06 T3, free, serum or plasma 2022 023 [facility] (Lab), [address] [place], [address], 3 14:41:01 T4, free, serum 2022 023 [facility] (Lab), [address] [place], [address], 3 14:41:03 TSH, serum or plasma 2022 023 [facility] (Lab), [address] [place], [address], 3 14:48:54 TSH + free T4, serum 2022 023 [facility] (Lab), [address] [place], [address], 3 12:08:23 T3, free, serum or plasma 2022 023 [facility] (Lab), [address] [place], [address], 3 17:09:29 HbA1c (hemoglobin A1c), blood 2022 023 [facility] (Lab), [address] [place], [address], 3 12:08:13 CMP, serum or plasma 2022 023 [facility] (Lab), [address] [place], [address], 14:37:14 lipid panel, serum 2022 023 KRISTIE [facility] (Lab), [address] [place], [address], 14:37:18 Referral None recorded. Procedures None recorded. Surgeries None recorded. Imaging None recorded. Medication Orders Crestor 20 mg tablet [address] [facility], [address] [place] [address], [address], 12:03:26 omeprazole 20 mg capsule,del ayed release [address] [facility], [address] [place] [address], [address], 12:35:08 Patient TargetsNo targets recorded. Patient Instructions Encounter Date Encounter Id Patient Instructions Last Modified By Organization Details Last Modified Time 10/03/2022 [id number] 6 minute walk test* Not available 10/03/2023 15:12:40 Reason for Referral None Reported. Results Created Date Observation Date Name Description Value Unit Range Abnormal Flag Note LastModifiedBy Organization Detail LastModifiedTime 10/04/1910/03/2022 COMPR EHENS JEANCARLOS METAB OLIC PANEL sodium 136 mmol/ L 137-14 5 low Not Available [facility] (Lab) [address] [place], [address], 10/03/2022 14:37:14 10/04/19 23 10/03/2022 COMPR EHENS JEANCARLOS METAB OLIC PANEL potassium 4.5 mmol/ L 3.5-5. 1 Not Available [facility] (Lab) [address] [place], [address], 10/03/2022 14:37:14 10/04/19 23 10/03/2022 COMPR EHENS JEANCARLOS METAB OLIC PANEL chloride 101 mmol/ L 98-107 Not Available [facility] (Lab) [address] [place], [address], 10/03/2022 14:37:14 10/04/19 23 10/03/2022 COMPR EHENS JEANCARLOS METAB OLIC PANEL carbon dioxide 23 mmol/ L 22-30 Not Available [facility] (Lab) [address] [place], [address], 10/03/2022 14:37:14 10/04/19 23 10/03/2022 COMPR EHENS JEANCARLOS METAB OLIC PANEL anion gap 16.5 mmol/ L 14-22 Not Available [facility] (Lab) [address] [place], [address], 10/03/2022 14:37:14 10/04/19 23 10/03/2022 COMPR EHENS JEANCARLOS METAB OLIC PANEL glucose 243 mg/dL 70-99 high Not Available [facility] (Lab) [address] [place], [address], 10/03/2022 14:37:14 10/04/19 23 10/03/2022 COMPR EHENS JEANCARLOS METAB OLIC PANEL BUN 17 mg/dL 8-19 Not Available [facility] (Lab) [address] [place], [address], 10/03/2022 14:37:14 10/04/19 23 10/03/2022 COMPR EHENS JEANCARLOS METAB OLIC PANEL creatinine 0.73 mg/dL 0.66-1 .25 Not Available [facility] (Lab) [address] [place], [address], 10/03/2022 14:37:14 10/04/19 23 10/03/2022 COMPR EHENS JEANCARLOS METAB OLIC PANEL GFR >60 Refer ence Range : [place] GFR Healt hy Adult : >60 mL/mi n/1.7 3 m2 Chron ic Kidne y Disea se: 15-60 mL/mi n/1.7 3 m2 Kidne y Failu re: <15/m L/min /1.73 m2 www.n iddk. nih.g ov The MDRD study equat ion has not been valid ated in child fouzia <18 years of age; pregn ant women ; the elder ly >85 years of age; or in some racia l or ethni c subgr oups, such as Hispa nics. Outsi de the valid ated gianfranco eters , estim ated GFR is less accur ate, requi ring clini angelina judgm ent on a case- by-ca se basis . Clini angelina inter preta tion for other races and ages must be made by the clini alexx. The MDRD study equat ion has not been valid ated for the evalu ation of serum creat inine relat ed to nutri radha l statu s or medic ation usage . For perso ns <18 years of age, a pedia tric GFR calcu lator is avail able on the [facility] websi te: https ://nuria w.debra asencioy.o rg/pr ofess ional s/kdo qi/gf r_cal culat or Not Available [facility] (Lab) [address] [place], [address], 10/03/2022 14:37:14 10/04/19 23 10/03/2022 COMPR EHENS JEANCARLOS METAB OLIC PANEL alkaline phosphatase 132 U/L 38-126 high Not Available [facility] (Lab) [address] [place], [address], 10/03/2022 14:37:14 10/04/19 23 10/03/2022 COMPR EHENS JEANCARLSO METAB OLIC PANEL alanine aminotransfe rase 43 U/L 0-35 high Not Available [facility] (Lab) [address] [place], [address], 10/03/2022 14:37:14 10/04/19 23 10/03/2022 COMPR EHENS JEANCARLOS METAB OLIC PANEL aspartate aminotransfe rase 42 U/L 15-37 high Not Available [facility] (Lab) [address] [place], [address], 10/03/2022 14:37:14 10/04/19 23 10/03/2022 COMPR EHENS JEANCARLOS METAB OLIC PANEL bilirubin, total 0.40 mg/dL 0.20-1 .30 Not Available [facility] (Lab) [address] [place], [address], 10/03/2022 14:37:14 10/04/19 23 10/03/2022 COMPR EHENS JEANCARLOS METAB OLIC PANEL calcium 9.2 mg/dL 8.4-10 .2 Not Available [facility] (Lab) [address] [place], [address], 10/03/2022 14:37:14 10/04/19 23 10/03/2022 COMPR EHENS JEANCARLOS METAB OLIC PANEL total protein 7.9 g/dL 6.3-8. 2 Not Available [facility] (Lab) [address] [place], [address], 10/03/2022 14:37:14 10/04/19 23 10/03/2022 COMPR EHENS JEANCARLOS METAB OLIC PANEL albumin 4.0 g/dL 3.0-4. 4 Not Available [facility] (Lab) [address] [place], [address], 10/03/2022 14:37:14 10/04/19 23 10/03/2022 COMPR EHENS JEANCARLOS METAB OLIC PANEL globulin 3.9 g/dL 2.6-4. 2 Not Available [facility] (Lab) [address] [place], [address], 10/03/2022 14:37:14 10/04/19 23 10/03/2022 COMPR EHENS JEANCARLOS METAB OLIC PANEL A/G ratio 1.0 ratio 1.0-2. 0 Not Available [facility] (Lab) [address] [place], [address], 10/03/2022 14:37:14 10/04/19 23 10/03/2022 LIPID PANEL cholesterol 233 mg/dL 140-19 9 high NIH ANTWON NSUS RECOM MENDA TION FOR ENOCH STERO L: ADULT CHILD LOW RISK: <200 <170 BORDE RLINE : <200- 239 ----- HIGH RISK: >240 >200 Not Available [facility] (Lab) [address] [place], [address], 10/03/2022 14:37:18 10/04/19 23 10/03/2022 LIPID PANEL triglyceride s 287 mg/dL 0-150 high NIH ANTWON NSUS REPOR T RECOM MENDA TION FOR TRIGL YCERI KANDY: ADULT CHILD LOW RISK: <150 ----- BODER LINE: 150-1 99 ----- HIGH RISK: >200 ----- Not Available [facility] (Lab) [address] [place], [address], 10/03/2022 14:37:18 10/04/19 23 10/03/2022 LIPID PANEL HDL cholesterol 60 mg/dL 40- Not Available [facility] (Lab) [address] [place], [address], 10/03/2022 14:37:18 10/04/19 23 10/03/2022 LIPID PANEL LDL cholesterol, calculated 116 mg/dL 0-130 NIH ANTWON NSUS REPOR T RECOM MENDA TIONS FOR LDL: ADULT CHILD LOW RISK <130 <110 (OPTI MAL LDL) <100 ----- BORDE RLINE : 130-1 59 ----- HIGH RISK: >160 >130 A TRIGL YCERI DE RESUL T >400 INVAL IDATE S THE CALCU LATIO N FOR LDL FRACT IONAT ION - THE LDL RESUL T WILL NOT BE REPOR ANUPAM. Not Available [facility] (Lab) [address] [place], [address], 10/03/2022 14:37:18 10/04/19 23 10/03/2022 T4 FREE free T4 1.30 NG/dL 0.78-2 .19 Not Available [facility] (Lab) [address] [place], [address], 10/03/2022 14:45:35 10/04/19 23 10/03/2022 TSH thyroid-stim ulating hormone 6.280 uIU/m L 0.465- 4.680 high Not Available [facility] (Lab) [address] [place], [address], 10/03/2022 15:40:14 10/04/19 23 10/03/2022 T3 FREE free T3 3.2 pg/mL 2.77-5 .27 Not Available [facility] (Lab) [address] [place], [address], 10/03/2022 17:09:29 10/04/1910/03/2022 HEMOG LOBIN A1C HA1C 8.7 % 4.0-6. 0 high Diabe ivanna Scree nabor Crite agatha: <5.7% Consi stent with absen ce of diabe ivanna 5.7-6 .4% Consi stent with incre ased risk for diabe ivanna (pred iabet es) >OR=6 .5% Consi stent with diabe ivanna REFER ENCE: Diabe ivanna Care 2016, 39(Rosales ppl.1 ):s13 -s22 Not Available [facility] (Lab) [address] [place], [address], 10/03/2022 19:36:37 01/23/20 23 01/22/2023 CBC/C OMPLE TE BLD COUNT W/DIF F white blood cells 13.9 x10'3 /uL 4.2-10 .8 high Not Available [facility] (Lab) [address] [place], [address], 01/22/2023 14:16:06 01/23/20 23 01/22/2023 CBC/C OMPLE TE BLD COUNT W/DIF F red blood cells 4.34 x10'6 /uL 3.80-5 .20 Not Available [facility] (Lab) [address] [place] [place], [address], 01/22/2023 14:16:06 01/23/20 23 01/22/2023 CBC/C OMPLE TE BLD COUNT W/DIF F hemoglobin 13.1 g/dL 12.0-1 5.6 Not Available [facility] (Lab) [address] [place], [address], 01/22/2023 14:16:06 01/23/2001/22/2023 CBC/C OMPLE TE BLD COUNT W/DIF F hematocrit 43.3 % 35.7-4 5.7 Not Available [facility] (Lab) [address] [place], [address], 01/22/2023 14:16:06 01/23/2001/22/2023 CBC/C OMPLE TE BLD COUNT W/DIF F mean red cell volume 99.8 fL 82.0-9 9.0 high Not Available [facility] (Lab) [address] [place], [address], 01/22/2023 14:16:06 01/23/2001/22/2023 CBC/C OMPLE TE BLD COUNT W/DIF F mean red cell hemoglobin 30.2 pg 27.0-3 3.0 Not Available [facility] (Lab) [address] [place], [address], 01/22/2023 14:16:06 01/23/2001/22/2023 CBC/C OMPLE TE BLD COUNT W/DIF F mean RBC HGB concentratio n 30.3 g/dL 31.0-3 6.0 low Not Available [facility] (Lab) [address] [place], [address], 01/22/2023 14:16:06 01/23/20 23 01/22/2023 CBC/C OMPLE TE BLD COUNT W/DIF F red cell distribution width 12.3 % 11.8-1 5.5 Not Available [facility] (Lab) [address] [place], [address], 01/22/2023 14:16:06 01/23/20 23 01/22/2023 CBC/C OMPLE TE BLD COUNT W/DIF F platelets 364 x10'3 /uL 150-40 0 Not Available [facility] (Lab) [address] [place], [address], 01/22/2023 14:16:06 01/23/2001/22/2023 CBC/C OMPLE TE BLD COUNT W/DIF F mean platelet volume 10.9 fL 9.0-12 .4 Not Available [facility] (Lab) [address] [place], [address], 01/22/2023 14:16:06 01/23/20 23 01/22/2023 CBC/C OMPLE TE BLD COUNT W/DIF F neutrophils 60.2 % 39.0-7 2.0 Not Available [facility] (Lab) [address] [place], [address], 01/22/2023 14:16:06 01/23/2001/22/2023 CBC/C OMPLE TE BLD COUNT W/DIF F lymphocytes 30.7 % 16.0-4 7.0 Not Available [facility] (Lab) [address] [place], [address], 01/22/2023 14:16:06 01/23/2001/22/2023 CBC/C OMPLE TE BLD COUNT W/DIF F monocytes 4.9 % 5.0-12 .0 low Not Available [facility] (Lab) [address] [place], [address], 01/22/2023 14:16:06 01/23/20 23 01/22/2023 CBC/C OMPLE TE BLD COUNT W/DIF F eosinophils 3.2 % 1.0-7. 0 Not Available [facility] (Lab) [address] [place], [address], 01/22/2023 14:16:01/23/20 23 01/22/2023 CBC/C OMPLE TE BLD COUNT W/DIF F basophils 0.6 % 0.0-2. 0 Not Available [facility] (Lab) [address] [place], [address], 01/22/2023 14:16:01/23/2001/22/2023 CBC/C OMPLE TE BLD COUNT W/DIF F immature granulocytes 0.4 % 0.00-0 .50 Not Available [facility] (Lab) [address] [place], [address], 01/22/2023 14:16:06 01/23/2001/22/2023 CBC/C OMPLE TE BLD COUNT W/DIF F neutrophils, absolute count 8.36 x10'3 /uL 1.5-8. 0 high Not Available [facility] (Lab) [address] [place], [address], 01/22/2023 14:16:01/23/2001/22/2023 CBC/C OMPLE TE BLD COUNT W/DIF F lymphocytes, absolute count 4.25 x10'3 /uL 1.07-3 .43 high Not Available [facility] (Lab) [address] [place], [address], 01/22/2023 14:16:01/23/2001/22/2023 CBC/C OMPLE TE BLD COUNT W/DIF F monocytes, absolute count 0.68 x10'3 /uL 0.29-0 .99 Not Available [facility] (Lab) [address] [facility] [place], [address], 01/22/2023 14:16:06 01/23/20 23 01/22/2023 CBC/C OMPLE TE BLD COUNT W/DIF F eosinophils, absolute count 0.44 x10'3 /uL 0.02-0 .53 Not Available [facility] (Lab) [address] [place], [address], 01/22/2023 14:16:06 01/23/20 23 01/22/2023 CBC/C OMPLE TE BLD COUNT W/DIF F basophils, absolute count 0.08 x10'3 /uL 0.01-0 .08 Not Available [facility] (Lab) [address] [place], [address], 01/22/2023 14:16:06 01/23/20 23 01/22/2023 CBC/C OMPLE TE BLD COUNT W/DIF F immature granulocytes ,absolute 0.05 x10'3 /uL 0.00-0 .05 Not Available [facility] (Lab) [address] [place], [address], 01/22/2023 14:16:06 01/23/20 23 01/22/2023 CBC/C OMPLE TE BLD COUNT W/DIF F nucleated red blood cells 0.0 % -0 Not Available [facility] (Lab) [address] [place], [address], 01/22/2023 14:16:06 01/23/20 23 01/22/2023 CBC/C OMPLE TE BLD COUNT W/DIF F NRBC# 0.00 x10'3 /uL Not Available [facility] (Lab) [address] [place], [address], 01/22/2023 14:16:06 01/23/20 23 01/22/2023 COMPR EHENS JEANCARLOS METAB OLIC PANEL sodium 135 mmol/ L 137-14 5 low Not Available [facility] (Lab) [address] [place], [address], 01/22/2023 14:31:39 01/23/20 23 01/22/2023 COMPR EHENS JEANCARLOS METAB OLIC PANEL potassium 3.9 mmol/ L 3.5-5. 1 Not Available [facility] (Lab) [address] [place], [address], 01/22/2023 14:31:39 01/23/20 23 01/22/2023 COMPR EHENS JEANCARLOS METAB OLIC PANEL chloride 95 mmol/ L 98-107 low Not Available [facility] (Lab) [address] [place] [place], [address], 01/22/2023 14:31:39 01/23/20 23 01/22/2023 COMPR EHENS JEANCARLOS METAB OLIC PANEL carbon dioxide 29 mmol/ L 22-30 Not Available [facility] (Lab) [address] [place], [address], 01/22/2023 14:31:39 01/23/20 23 01/22/2023 COMPR EHENS JEANCARLOS METAB OLIC PANEL anion gap 14.9 mmol/ L 14-22 Not Available [facility] (Lab) [address] [place], [address], 01/22/2023 14:31:39 01/23/20 23 01/22/2023 COMPR EHENS JEANCARLOS METAB OLIC PANEL glucose 215 mg/dL 70-99 high Not Available [facility] (Lab) [address] [place] [place], [address], 01/22/2023 14:31:39 01/23/20 23 01/22/2023 COMPR EHENS JEANCARLOS METAB OLIC PANEL BUN 14 mg/dL 8-19 Not Available [facility] (Lab) [address] [place], [address], 01/22/2023 14:31:39 01/23/20 23 01/22/2023 COMPR EHENS JEANCARLOS METAB OLIC PANEL creatinine 1.01 mg/dL 0.66-1 .25 Not Available [facility] (Lab) [address] [place], [address], 01/22/2023 14:31:39 01/23/20 23 01/22/2023 COMPR EHENS JEANCARLOS METAB OLIC PANEL GFR 54 Refer ence Range : [place] ge GFR Healt hy Adult : >60 mL/mi n/1.7 3 m2 Chron ic Kidne y Disea se: 15-60 mL/mi n/1.7 3 m2 Kidne y Failu re: <15/m L/min /1.73 m2 www.n iddk. nih.g ov The MDRD study equat ion has not been valid ated in child fouzia <18 years of age; pregn ant women ; the elder ly >85 years of age; or in some racia l or ethni c subgr oups, such as Hispr nics. Outsi de the valid ated gianfranco eters , estim ated GFR is less accur ate, requi ring clini angelina judgm ent on a case- by-ca se basis . Clini angelina inter preta tion for other races and ages must be made by the clini alexx. The MDRD study equat ion has not been valid ated for the evalu ation of serum creat inine relat ed to nutri radha l statu s or medic ation usage . For perso ns <18 years of age, a pedia tric GFR calcu lator is avail able on the F websi te: https ://ww w.kid stefany.o rg/pr ofess ional s/kdo qi/gf r_cal culat or Not Available [facility] (Lab) [address] [place], [address], 01/22/2023 14:31:39 01/23/2001/22/2023 COMPR EHENS JEANCARLOS METAB OLIC PANEL alkaline phosphatase 154 U/L 38-126 high Not Available [facility] (Lab) [address] [place], [address], 01/22/2023 14:31:39 01/23/20 23 01/22/2023 COMPR EHENS JEANCARLOS METAB OLIC PANEL alanine aminotransfe rase 36 U/L 0-35 high Not Available [facility] (Lab) [address] [place], [address], 01/22/2023 14:31:39 01/23/20 23 01/22/2023 COMPR EHENS JEANCARLOS METAB OLIC PANEL aspartate aminotransfe rase 37 U/L 15-37 Not Available [facility] (Lab) [address] [place] [place], [address], 01/22/2023 14:31:39 01/23/20 23 01/22/2023 COMPR EHENS JEANCARLOS METAB OLIC PANEL bilirubin, total 0.40 mg/dL 0.20-1 .30 Not Available [facility] (Lab) [address] [place], [address], 01/22/2023 14:31:39 01/23/20 23 01/22/2023 COMPR EHENS JEANCARLOS METAB OLIC PANEL calcium 9.8 mg/dL 8.4-10 .2 Not Available [facility] (Lab) [address] [place], [address], 01/22/2023 14:31:39 01/23/20 23 01/22/2023 COMPR EHENS JEANCARLOS METAB OLIC PANEL total protein 8.0 g/dL 6.3-8. 2 Not Available [facility] (Lab) [address] [place], [address], 01/22/2023 14:31:39 01/23/20 23 01/22/2023 COMPR EHENS JEANCARLOS METAB OLIC PANEL albumin 4.2 g/dL 3.0-4. 4 Not Available [facility] (Lab) [address] [place], [address], 01/22/2023 14:31:39 01/23/20 23 01/22/2023 COMPR EHENS JEANCARLOS METAB OLIC PANEL globulin 3.8 g/dL 2.6-4. 2 Not Available [facility] (Lab) [address] [place], [address], 01/22/2023 14:31:39 01/23/20 23 01/22/2023 COMPR EHENS JEANCARLOS METAB OLIC PANEL A/G ratio 1.1 ratio 1.0-2. 0 Not Available [facility] (Lab) [address] [place], [address], 01/22/2023 14:31:39 01/23/2001/22/2023 LIPID PANEL cholesterol 231 mg/dL 140-19 9 high NIH ANTWON NSUS RECOM MENDA TION FOR ENOCH STERO L: ADULT CHILD LOW RISK: <200 <170 BORDE RLINE : <200- 239 ----- HIGH RISK: >240 >200 Not Available [facility] (Lab) [address] [place], [address], 01/22/2023 14:31:42 01/23/2001/22/2023 LIPID PANEL triglyceride s 306 mg/dL 0-150 high NIH ANTWON NSUS REPOR T RECOM MENDA TION FOR TRIGL YCERI KANDY: ADULT CHILD LOW RISK: <150 ----- BODER LINE: 150-1 99 ----- HIGH RISK: >200 ----- Not Available [facility] (Lab) [address] [place], [address], 01/22/2023 14:31:42 01/23/20 23 01/22/2023 LIPID PANEL HDL cholesterol 54 mg/dL 40- Not Available [facility] (Lab) [address] [place], [address], 01/22/2023 14:31:42 01/23/20 23 01/22/2023 LIPID PANEL LDL cholesterol, calculated 116 mg/dL 0-130 NIH ANTWON NSUS REPOR T RECOM MENDA TIONS FOR LDL: ADULT CHILD LOW RISK <130 <110 (OPTI MAL LDL) <100 ----- BORDE RLINE : 130-1 59 ----- HIGH RISK: >160 >130 A TRIGL YCERI DE RESUL T >400 INVAL IDATE S THE CALCU LATIO N FOR LDL FRACT IONAT ION - THE LDL RESUL T WILL NOT BE REPOR ANUPAM. Not Available [facility] (Lab) [address] [place], [address], 01/22/2023 14:31:42 01/23/2001/22/2023 T3 FREE free T3 4.1 pg/mL 2.77-5 .27 Not Available [facility] (Lab) [address] [place], [address], 01/22/2023 14:41:01 01/23/20 23 01/22/2023 T4 FREE free T4 1.44 NG/dL 0.78-2 .19 Not Available [facility] (Lab) [address] [place], [address], 01/22/2023 14:41:03 01/23/2001/22/2023 TSH thyroid-stim ulating hormone 6.010 uIU/m L 0.465- 4.680 high Not Available [facility] (Lab) [address] [place], [address], 01/22/2023 14:48:54 01/23/2001/22/2023 HEMOG LOBIN A1C HA1C 8.4 % 4.0-6. 0 high Diabe ivanna Scree nabor Crite agatha: <5.7% Consi stent with absen ce of diabe ivanna 5.7-6 .4% Consi stent with incre ased risk for diabe ivanna (pred iabet es) >OR=6 .5% Consi stent with diabe ivanna REFER ENCE: Diabe ivanna Care 2016, 39(Rosales ppl.1 ):s13 -s22 Not Available [facility] (Lab) [address] [place], [address], 01/22/2023 15:18:45 03/14/20 22 11/09/2021 screjanelle trivedias t jerome, bilat [facility] [address], [place] [address] [place] [address] Name: IVELISSE RIVERA Access ion #: [id number] Sex: F : 1955 4 Locati on: RAD Attend ing Physic bernadette: ALEXANDRA ARELLANO Orderi ng Physic bernadette: ALEXANDRA ARELLANO Exam Date: 022 2:55 PM Exam Name: SCRN BREAST JEROME BILAT Admitt ing Diagno sis(es ): MAMMOG MOISES REPORT - FINAL WITH ADDEND UM ADDEND UM: Correc tion, the left anteri or breast asymme try seen on the [facility] mammog deborah is stable and is not morpho logica lly suspic ious. BIRADS 2: Assess ment comple te. Benign findin gs. Recomm end annual screen ing mammog moises. Create d and electr onical ly signed by: Gaurav luis MD Signed Date: 2021 8:39 AM (CT) Dictat ed by: Gaurav luis MD DD: 2021 8:39 AM (CT) DT: 2021 8:39 AM (CT) Report _ID: [id number] Page 1 of 3 [facility] Name: IVELISSE RIVERA Access ion #: [id number] Sex: F : 1955 2 Exam Date: 022 2:55 PM Exam Name: SCRTeresa BREAST JEROME BILAT Admitt ing Diagno sis(es ): EXAM: MG SCRN BREAST JEROME BILAT HISTOR Y: SCREEN ING MAMMOG DEBORAH COMPAR KALEB: 2020, 2014 TECHNI QUE: Bilate ral CC and MLO views of the breast s were perfor med. Digita l Mammog moises images were obtain ed. CAD (compu ter assist ed detect ion) was utiliz ed. 3D Digita l breast tomosy nthesi s was perfor med and used in the interp retati on of images . FINDIN GS: There are scatte red areas of fibrog landul ar densit y. Right breast : No masses , asymme tries, suspic ious calcif icatio ns, or darline ectura l distor tion are seen. Left breast : There is a new 5 mm asymme try within the anteri or latera l aspect of the left breast noted on the cranio caudad view. IMPRES DEEDEE: BIRADS 0: Assess ment incomp lete. Need additi onal imagin g evalua tion. Recomm end additi onal imagin g and ultras ound of the left breast asymme try. Page 2 of 3 [facility] Name: IVELISSE RIVERA Access ion #: [id number] Sex: F : 1955 4 Exam Date: 2:55 PM Exam Name: MG SCRN BREAST JEROME BILAT Admitt ing Diagno sis(es ): Create d and electr onical ly signed by: Mike lopez MD Signed Date: 4:43 PM (CT) Dictat ed by: Mike lopez MD DD: 4:43 PM (CT) DT: 4:43 PM (CT) Page 3 of 3 [facility].[id number] [facility] (Im[facility]) [address] [place], [address], 07/18/2022 02:53:06 Result Notes None recorded. Problems Name Problem SNOMED Code Status Onset Date Resolution Date Notes Provider Name and Address Organization Details Recorded Time Renewal of prescrip tion Active 2021 Not Available [facility] 3 06:55:49 Chronic back pain [id number] Active Not Available [facility] 3 06:55:49 Acute sinusiti s 28237657 Active 2021 Not Available [facility] 3 06:55:49 Standard chest X-ray abnormal 655963650 Active 2021 Not Available [facility] 3 06:55:49 Mammogra phy abnormal 026871859 Active 2021 Not Available [facility] 3 06:55:49 Lateral epicondy litis 036227052 Active Not Available [facility] 3 06:55:49 Abdomina l pain 44461287 Active 2021 Not Available [facility] 3 06:55:49 Gastroes ophageal reflux disease 942963297 Active 2021 Not Available [facility] 3 06:55:49 Pain in toe 067273803 Completed Not Available [facility] 3 02:45:32 Pain in right lower limb 974767148 Completed Not Available [facility] 3 02:45:32 Type 2 diabetes mellitus without complica tion 080889098 Active 2021 Not Available [facility] 3 06:55:49 Pain in left foot 62305538142 9107 Completed Not Available [facility] 3 02:45:32 Vitamin D deficien cy 17052736 Active Not Available [facility] 3 06:55:49 Dyslipid emia 206212403 Active Not Available [facility] 3 06:55:49 Migraine 72103217 Active 2021 Not Available [facility] 3 06:55:49 Obesity 066771159 Active Not Available [facility] 3 06:55:49 Chronic hypercap arely respirat ory failure 180315481 Active 2021 Not Available [facility] 3 06:55:49 Solitary nodule of lung 482301984 Active 2021 Not Available [facility] 3 06:55:49 Chronic hypoxemi c respirat ory failure 571342385 Active 2018 Not Available [facility] 3 06:55:49 Type 2 diabetes mellitus 12020777 Active 2020July 2020 A1c 7.9 Not Available [facility] 3 06:55:50 Anxiety 19973684 Active 2017 Not Available [facility] 3 06:55:50 Upper respirat ory infectio n 03532579 Active 2021 Not Available [facility] 3 06:55:50 Hyperlip idemia 74554535 Active 2021 Not Available [facility] 3 06:55:50 Diarrhea 11362702 Completed Not Available [facility] 3 02:45:34 Nasal congesti on 48410543 Completed Not Available [facility] 3 02:45:34 Acute hypoxemi c respirat ory failure 009223228 Active 2021 Not Available [facility] 3 06:55:50 Diabetes mellitus 78329514 Active 2020 Not Available [facility] 3 06:55:50 Sleep apnea 83548943 Active 2021 Not Available [facility] 3 06:55:50 Obstruct jeancarlos sleep apnea syndrome 14432431 Active 2021 Not Available [facility] 3 06:55:50 Impaired glucose toleranc e 9285304 Active 2018 hemoglob in A1c 6.2 on hospital ization June 2018 Not Available [facility] 3 06:55:50 Primary fibromya lgia syndrome 65587243 Active Not Available [facility] 3 06:55:50 Dyspnea 435374134 Active 2022 Not Available [facility] 3 06:55:49 Hypothyr oidism 24858424 Active 2022 Not Available [facility] 3 06:55:49 Cough 63497613 Active 2022 Not Available [facility] 3 06:55:50 Notes:borderline diabetes me llitus Problem Notes None recorded. Procedures Surgical History Date Name Laterality Status Provider Name and Address Organization Details Recorded Time 04/29/20 24 Nail Debridement completed Prosper Gross DPM [address] [facility], [facility] [address], [address], [facility] 04/29/2024 16:23:17 04/29/20 24 Debridement of Callus or [place] completed Prosper Gross DPM [address], [place], [address], [facility] 04/29/2024 16:23:41 08/13/19 21 Most Recent Bone Density completed Not Available [facility] 07/18/2022 02:41:26 09/09/19 17 Colonoscopy completed Not Available [facility] 07/18/2022 02:41:29 08/30/19 17 Date of Last Colonoscopy completed Not Available [facility] 07/18/2022 02:41:26 Tubal Ligation completed Not Available [facility] 07/18/2022 02:41:29 Tonsillectomy completed Not Available [facility] 07/18/2022 02:41:29 Appendectomy completed Not Available [facility] 07/18/2022 02:41:29 dilation and curettage completed Not Available [facility] 07/18/2022 02:41:29 [employer] Surgery completed Not Available [facility] 07/18/2022 02:41:29 Cholecystectomy completed Not Available [facility] 07/18/2022 02:41:29 Imaging Results None recorded. Procedure Notes None recorded. Medical Equipment None Reported. Allergies Allergen ID Allergen Name Allergen Category Reaction Reaction Severity Criticality Documentation Date Start Date Code Code System Note Provider Name and Address Organization Details Recorded Time 4009 Substance with sulfonami de structure and antibacte rial mechanism of action (substanc e) medicatio n rash Not available Not available 07/18/2022 [id number] SNOMED Not Available [facility] 3 02:52:45 4010 Glucophag e medicatio n diarrhea severe Not available 07/18/2022 63471 7 RxNorm Not Available [facility] 3 02:52:45 4011 Daypro medicatio n rash Not available Not available 07/18/2022 56718 1 RxNorm Not Available [facility] 3 02:52:45 4012 corn syrup food diarrhea Not available Not available 07/18/2022 52341 76 RxNorm Not Available [facility] 3 02:52:45 4013 corn extract food,medi cation diarrhea Not available Not available 07/18/2022 15167 08 RxNorm Not Available [facility] 3 02:52:45 Medications Name Sig Start Date Stop Date Status Note LastModified by Organization Details LastModified Time naltrexon e 3mg capsules TAKE ONE CAPSULE BY MOUTH TWICE DAILY active Not Available Not Available No t Available cyclobenz aprine 10 mg tablet TAKE 1 TABLET BY MOUTH THREE TIMES DAILY FOR 30 DAYS active Not Available Not Available No t Available prednison e 10 mg tablet Take by oral route. take [id number], [id number], 3r9rfge active Not Available Not Available No t Available doxycycli ne hyclate 100 mg capsule TAKE 1 CAPSULE BY MOUTH TWICE DAILY FOR 7 DAYS 01/22 completed Not Available Not Available Not Available cefuroxim e axetil 250 mg tablet 12/22 completed Not Available Not Available Not Available atorvasta tin 20 mg tablet TAKE 1 TABLET BY MOUTH ONCE DAILY 01/22 completed Not Available Not Available Not Available atorvasta tin 10 mg tablet Take 1 tablet every day by oral route. 01/22 completed Not Available Not Available Not Available azithromy sarah 250 mg tablet TAKE 2 TABLETS BY MOUTH ON DAY 1, AND THEN TAKE 1 TABLET BY MOUTH ONCE A DAY ON DAY 2 THROUGH DAY 5 active Not Available Not Available No t Available amitripty line 75 mg tablet TAKE 1 TABLET BY MOUTH ONCE DAILY active Not Available Not Available No t Available sumatript an 100 mg tablet TAKE 1 TABLET (100 MG TOTAL) BY MOUTH ONCE NEEDED FOR MIGRAINE HEADACHE FOR UP TO 1 DOSE MAY REPEAT ONE TIME AFTER 2 HOURS IF NEEDED active Not Available Not Available No t Available permethri n 5 % topical cream 04/09 completed Not Available Not Available Not Available sumatript an 50 mg tablet take one at onset of headache , repeat once in 24 hours 10/03 completed increase d to 100mg Not Available Not Available Not Available hydroxyzi ne pamoate 50 mg capsule TAKE 1 CAPSULE BY MOUTH EVERY DAY AT BEDTIME 01/06 completed Not Available Not Available Not Available valsartan 80 mg tablet TAKE ONE TABLET BY MOUTH ONCE DAILY 12/05 completed Not Available Not Available Not Available Biaxin 500 mg tablet Take 1 tablet every 12 hours by oral route. 12/22 completed Not Available Not Available Not Available metronida zole 500 mg tablet Take 1 tablet 3 times a day by oral route for 7 days. active Not Available Not Available No t Available tramadol 50 mg tablet TAKE ONE TABLET BY MOUTH TWICE DAILY NEEDED 12/12 completed Not Available Not Available Not Available amitripty line 50 mg tablet 08/18 completed Not Available Not Available Not Available citalopra m 20 mg tablet TAKE 1 TABLET BY MOUTH ONCE DAILY active Not Available Not Available No t Available famotidin e 20 mg tablet TAKE 1 TABLET BY MOUTH ONCE DAILY AT BEDTIME active Not Available Not Available No t Available dexametha sone 2 mg tablet TK 3 TS PO QD active Not Available Not Available No t Available levothyro xine 50 mcg tablet Take 1 tablet every day by oral route. active Not Available Not Available No t Available hydrocodo ne 7.5 mg-acetam inophen 325 mg tablet 09/03 completed Not Available Not Available Not Available [...] Not Available Not Available No t Available monteluka st 10 mg tablet TAKE 1 TABLET BY MOUTH ONCE DAILY 10/03 completed Not Available Not Available Not Available ergocalci ferol (vitamin D2) 1,250 mcg (50,000 unit) capsule Take 1 capsule every week by oral route. active Not Available Not Available No t Available cefuroxim e axetil 500 mg tablet Take 1 tablet twice a day by oral route for 21 days. 12/22 completed Not Available Not Available Not Available methylpre dnisolone 4 mg tablets in a dose pack TAKE BY MOUTH DIRECTED ON INSIDE OF PACKAGE 01/22 completed Not Available Not Available Not Available albuterol sulfate HFA 90 mcg/actua tion aerosol inhaler INL 2 PFS PO Q 4 H PRF SOB active Not Available Not Available No t Available Lomotil 2.5 mg-0.025 mg tablet 1 tablet TID PRN Diarrhea 06/21 completed Not Available Not Available Not Available cefdinir 300 mg capsule Take 1 capsule twice a day by oral route. active Not Available Not Available No t Available fluticaso ne propionat e 50 mcg/actua tion nasal spray,alyssa pension USE 2 SPRAY(S) IN EACH NOSTRIL ONCE DAILY active Not Available Not Available No t Available metformin ER 500 mg tablet,ex tended release 24 hr 07/16 completed Not Available Not Available Not Available amoxicill in 875 mg-potass ium clavulana te 125 mg tablet Take 1 tablet every 12 hours by oral route for 7 days. 04/15 completed Not Available Not Available Not Available amoxicill in 500 mg-potass ium clavulana te 125 mg tablet 12/22 completed Not Available Not Available Not Available olmesarta n 20 mg tablet TAKE 1 TABLET BY MOUTH DAILY 12/15 completed Not Available Not Available Not Available Vigamox 0.5 % eye drops 09/13 completed Not Available Not Available Not Available cholestyr amine (with sugar) 4 gram oral powder DISSOLVE 1 SCOOP IN LIQUID AND TAKE BY MOUTH ONCE DAILY 03/07 completed Not Available Not Available Not Available cholestyr amine (with sugar) 4 gram powder for susp in a packet DISSOLVE AND TAKE ONE POWDER BY MOUTH DAILY active Not Available Not Available No t Available rosuvasta tin 10 mg tablet TAKE 1 TABLET BY MOUTH EVERY DAY 03/07 completed Not Available Not Available Not Available rosuvasta tin 20 mg tablet Take 1 tablet every day by oral route. active Not Available Not Available No t Available topiramat e 50 mg tablet TAKE 1 TABLET BY MOUTH AT BEDTIME FOR ONE WEEK, THEN INCREASE TO ONE TABLET TWICE DAILY active Not Available Not Available No t Available duloxetin e 30 mg capsule,d elayed release TAKE 1 CAPSULE BY MOUTH ONCE DAILY WITH 60 MG CAPSULE active Not Available Not Available No t Available duloxetin e 60 mg capsule,d elayed release TAKE 1 CAPSULE BY MOUTH ONCE DAILY active Not Available Not Available No t Available fluocinon miguelito 0.1 % topical cream 07/07 completed Not Available Not Available Not Available omeprazol e 03/23 completed Not Available Not Available Not Available naproxen 07/07 completed Not Available Not Available Not Available Vitamin D 2020 active Not Available Not Available Not Avai lable Tylenol 2020 active Not Available Not Available Not Avai lable naltrexon e 3mg Q12 hours prn 2018 active Not Available Not Available Not Avai lable metformin ER 500 mg 24 hr tablet,ex tended release (gastric retention ) Take 1 tablet twice a day by oral route. 04/07 completed Not Available Not Available Not Available Januvia 25 mg tablet Take 1 tablet every day by oral route. 07/13 [facility] [place] Not Available Not Available Not Available omeprazol e 20 mg tablet,de layed release take one tablet by mouth once a day 11/03 completed duplicat e Not Available Not Available Not Available Suprep Bowel Prep Kit 17.5 gram-3.13 gram-1.6 gram oral solution 01/28 completed Not Available Not Available Not Available [facility] 2020 active Not Available Not Available Not Avai lable Accu-Chek Cassie Plus test strips USE 1 STRIP TO CHECK GLUCOSE ONCE DAILY active Not Available Not Available No t Available Farxiga 5 mg tablet Take 1 tablet every day by oral route. 08/11 completed Not Available Not Available Not Available Tresiba FlexTouch U-100 insulin 100 unit/mL (3 mL) subcutane ous pen INJECT 65 UNITS SUBCUTAN EOUSLY ONCE DAILY active Not Available Not Available No t Available oxygen 2L 03/07 completed Not Available Not Available Not Available Admelog SoloStar U-100 Insulin lispro 100 unit/mL subcutane ous pen INJECT 10 UNITS SUBCUTAN EOUSLY THREE TIMES DAILY WITH MEALS active Not Available Not Available No t Available Accu-Chek Fastclix Lancet Drum active Not Available Not Available Not Available Fluzone Quad 2017-(P F) 60 mcg(15 mcgx4)/0. 5 mL intramusc ular syringe 07/07 completed Not Available Not Available Not Available Nexletol 180 mg tablet TAKE 1 TABLET BY MOUTH ONCE DAILY active Not Available Not Available No t Available Dexcom G7 Dispatch Lead USE DIRECTED FOR BLOOD SUGAR active Not Available Not Available No t Available Dexcom G7 Sensor device CHANGE SENSOR EVERY 10 DAYS active Not Available Not Available No t Available Ozempic 0.25 mg or 0.5 mg (2 mg/3 mL) subcutane ous pen injector Inject 0.5mg weekly for 4 weeks active Not Available Not Available No t Available Vitals Date Recorded Body height Body mass index (BMI) Body weight Body temperature Heart rate Oxygen saturation Oxygen saturation in Arterial blood by Pulse oximetry Systolic And Diastolic Provider Name and Address Organization Details Last Updated DateTime 3 162.56 cm 47.2 kg/m2 994954. 9 g 96.5 [degF] 90 /min 97 % 97 % 128/90 mm[Hg] Anh Billings RN [facility] 3 11:30:21 Date Recorded Body mass index (BMI) Body height Heart rate Body temperature Body weight Systolic And Diastolic Provider Name and Address Organization Details Last Updated DateTime 2 46.5 kg/m2 162.56 cm 94 /min 97.8 [degF] 344928. 53 g 132/70 mm[Hg] Not Available [facility] 3 02:41:49 Date Recorded Body height Body mass index (BMI) Body weight Body temperature Heart rate Systolic And Diastolic Provider Name and Address Organization Details Last Updated DateTime 3 162.56 cm 45.8 kg/m2 936467. 16 g 97.6 [degF] 93 /min 122/84 mm[Hg] Shereen olivia RN [facility] 3 10:59:09 Date Recorded Body mass index (BMI) Body height Heart rate Body temperature Body weight Systolic And Diastolic Provider Name and Address Organization Details Last Updated DateTime 2 45.8 kg/m2 162.56 cm 87 /min 97.3 [degF] 969615. 16 g 126/78 mm[Hg] Not Available [facility] 3 02:41:49 Date Recorded Body height Body mass index (BMI) Body weight Oxygen saturation Oxygen saturation in Arterial blood by Pulse oximetry Body temperature Heart rate Provider Name and Address Organization Details Last Updated DateTime 4 162.56 cm 45.7 kg/m2 240055. 57 g 98 % 98 % 98.2 [degF] 92 /min TANA Mock [facility] 4 14:24:01 Social History Question Answer Notes LastModified by Organizat ion Details LastModified Time Tobacco Smoking Status Never Smoker Not Available [facility] 07/18/2022 02:27:18 Do You Have An Advance Directive? Yes [id number] Information not available 07/18/2022 Are You Blind Or Do You Have Difficulty Seeing? No MIGRATION.79851 80970 Information not available 07/18/2022 What Is Your Level Of Caffeine Consumption? Moderate MIGRATION.25574 24127 Information not available 07/18/2022 How Much Tobacco Do You Chew? None MIGRATION.08589 06389 Information not available 07/18/2022 In The 14 Days Before Symptom Onset, Have You Had Close Contact With A Laboratory-confi rmed COVID-19 While That Case Was Ill? No MIGRATION.06245 [id number] Information not available 07/18/2022 In The 14 Days Before Symptom Onset, Have You Had Close Contact With A Person Who Is Under Investigation For COVID-19 While That Person Was Ill? No MIGRATION.04427 36375 Information not available 07/18/2022 Are You Deaf Or Do You Have Serious Difficulty Hearing? No MIGRATION.33845 07944 Information not available 07/18/2022 What Type Of Diet Are You Following? REGULAR MIGRATION.90457 81557 Information not available 07/18/2022 Which Illicit Or Recreational Drugs Have You Used? None MIGRATION.42956 88267 Information not available 07/18/2022 What Is The Highest Grade Or Level Of School You Have Completed Or The Highest Degree You Have Received? [id number] MIGRATION.45709 11110 Information not available 07/18/2022 Have There Been Any Changes To Your Family Or Social Situation? No Information not available 01/22/2023 What Is The Fluoride Status Of Your Home? Unknown MIGRATION.75094 17805 Information not available 07/18/2022 Are There Any Guns Present In Your Home? No MIGRATION.76890 75781 Information not available 07/18/2022 Do You Use Insect Repellent Routinely? No MIGRATION.40787 44739 Information not available 07/18/2022 Where Do You Live? [place] MIGRATION.46915 46189 Information not available 07/18/2022 Do You Have A Medical Power Of Top Trimmer? Yes MIGRATION.90284 66516 Information not available 07/18/2022 What Was The Date Of Your Most Recent Tobacco Screening? 04/29/2024 [email or web address] Information not available 04/29/2024 Have You Ever Been Counseled For Unhealthy Alcohol Use? No MIGRATION.59532 83170 Information not available 07/18/2022 Do You Have Any Pets? No MIGRATION.55049 12039 Information not available 07/18/2022 What Is Your Relationship Status? MIGRATION.19469 48253 Information not available 07/18/2022 Do You Use Your Seat Belt Or Car Seat Routinely? Yes MIGRATION.33418 17363 Information not available 07/18/2022 Do You Have Smoke And Carbon Monoxide Detectors In Your Home? Yes MIGRATION.74820 86718 Information not available 07/18/2022 Are You Passively Exposed To Smoke? No MIGRATION.66854 73285 Information not available 07/18/2022 Are There Any Smokers In Your House? No MIGRATION.08736 05558 Information not available 07/18/2022 How Much Tobacco Do You Smoke? No MIGRATION.42541 45057 Information not available 07/18/2022 What Types Of Sporting Activities Do You Participate In? None MIGRATION.59890 18430 Information not available 07/18/2022 Do You Use Sunscreen Routinely? No MIGRATION.91765 50320 Information not available 07/18/2022 Has Tobacco Cessation Counseling Been Provided? No Not Needed-ne ashley Smoked MIGRATION.84476 76454 Information not available 07/18/2022 Have You Recently Traveled Abroad? No MIGRATION.53233 87077 Information not available 07/18/2022 Do You Have Difficulty Walking Or Climbing Stairs? Yes Information not available 01/22/2023 Do You Have Any Dietary Restrictions? No MIGRATION.88189 54409 Information not available 07/18/2022 Sex: Female Functional Status Question Answer Note LastModified by Organizat ion Details LastModified Time Do you or have you ever used smokeless tobacco? Never used smokeless tobacco MIGRATION.848061 1661 Information not available 07/18/2022 Are you currently employed? No [email or web address] Information not available 10/03/2022 Do you have transportation difficulties? Yes Information not available 01/22/2023 Are you able to care for yourself? Yes MIGRATION.303086 2084 Information not available 07/18/2022 Do you have difficulty dressing or bathing? No MIGRATION.379247 1897 Information not available 07/18/2022 Do you or have you ever used e-cigarettes or vape? Never used electronic cigarettes MIGRATION.883492 7468 Information not available 07/18/2022 What is your exercise level? None MIGRATION.544999 7424 Information not available 07/18/2022 Do you use any illicit or recreational drugs? No MIGRATION.805027 6532 Information not available 07/18/2022 Do you or have you ever used any other forms of tobacco or nicotine? No MIGRATION.315992 3364 Information not available 07/18/2022 What is your level of alcohol consumption? Occasional MIGRATION.130413 1394 Information not available 07/18/2022 Are you able to walk? YESWOREST MIGRATION.514350 6221 Information not available 07/18/2022 Do you have difficulty doing errands alone? No MIGRATION.437404 7486 Information not available 07/18/2022 What is your occupation? homemaker MIGRATION.442394 8042 Information not available 07/18/2022 Mental Status Question Answer Note LastModified by Organizat ion Details LastModified Time Do you feel stressed (tense, restless, nervous, or anxious, or unable to sleep at night)? [id number] [email or web address] Information not available 10/03/2022 Do you have difficulty concentrating, remembering or making decisions? No MIGRATION.[id number] 26 Information not available 07/18/2022 Family History Relationship Description Onset Age of this Age Resolved Age Notes LastModified by Organization Details LastModified Time Father Cerebrovascu lar accident 48 MIGRATION.[id number] Not available 07/18/2022 02:41:29 Father Hypertensive disorder MIGRATION.285 [id number] Not available 07/18/2022 02:41:29 Mother Hypertensive disorder MIGRATION.181 [id number] Not available 07/18/2022 02:41:29 Mother Sick sinus syndrome MIGRATION.605 [id number] Not available 07/18/2022 02:41:29 Mother Diabetes mellitus MIGRATION.227 [id number] Not available 07/18/2022 02:41:29 Medical History Condition Response NERVE DISEASE Y BLINDNESS N RHEUMATIC FEVER N KIDNEY STONES N BLADDER PROBLEMS N MRSA N OTHER # 1 Y POLIO N LUNG DISEASE/DISORDER N COPD N RADIATION / CHEMOTHERAPY N Other # 2 N BLOOD DISEASES N SURGERY N EAR OR HEARING PROBLEMS N MUMPS N DEPRESSION (INCLUDING POST ) Y BOWEL PROBLEMS Y STROKE/TIA N ULCERS Y BENIGN PROSTATIC HYPERPLASIA N MEASLES N MYOCARDIAL INFARCTION N OBESITY Y GERD/NAUSEA N ANEURYSM N URINARY/BLADDER/KIDNEY PROBLEMS N CORONARY ARTERY DISEASE (CAD) N ADDICTION CONCERNS N Impotence N ENDOMETRIOSIS N USE OF BLOOD THINNERS N SKIN PROBLEMS Y GASTROINTESTINAL DISORDER N PERIPHERAL VASCULAR DISEASE N MUSCLE,JOINT OR BONE PROBLEMS N GASTROINTESTINAL BLEEDING N BLOOD CLOTS N ASTHMA N CATARACTS N ERECTILE DYSFUNCTION N VARICOSITIES N GI PROBLEMS N Low Testosterone N INFERTILITY N AIDS/HIV N CHEMOTHERAPY / RADIATION N LIVER DISEASE N MALE HYPOGONADISM N HYPERTENSION Y Deficiency Y ANXIETY DISORDER Y BLOOD TRANSFUSION N ANEMIA/BLOOD DISORDER N CHRONIC EAR INFECTIONS N BRONCHITIS N TUBERCULOSIS N GLAUCOMA N FOOT PROBLEM N DIVERTICULITIS N SLEEP APNEA Y CHICKENPOX N INFECTIOUS DISEASE N PROSTATE N HEART ARRHYTHMIA N INSOMNIA N HIGH CHOLESTEROL / HYPERLIPIDEMIA Y EYE PROBLEMS N HYPERTHYROIDISM N NEUROLOGICAL PROBLEMS N EDEMA N CHRONIC PAIN SYNDROME N HYPOTHYROIDISM N CAROTID BLOCKAGE N CONSTIPATION N BACK / NECK PROBLEMS Y HAVE YOU BEEN HOSPITALIZED OR SEEN IN [facility] IN THE PAST YEAR ? N ATHEROSCLEROSIS N BREAST PROBLEMS N DIALYSIS N ECZEMA N OSTEOPOROSIS N ARTHRITIS Y APPENDICITIS N DIABETES, TYPE Y BAD TEETH N ENT N HEARTBURN / REFLUX Y AUTISM SPECTRUM DISORDER (ASD) N HEPATITIS / LIVER DISEASE N GOUT N SLEEP DISORDER N ALZHEIMER'S DISEASE N Brain Problems N DEMENTIA N HERPES Y SEIZURES/EPILEPSY N HEADACHES/MIGRAINES Y VASCULAR DISEASE N PACEMAKER N Blood Disorder N DIZZINESS Y HEART DISEASE/HEART PROBLEMS N KIDNEY DISEASE N MULTIPLE SCLEROSIS N CANCER: SPECIFY N CARDIAC ARRHYTHMIA Y ATRIAL FIBRILLATION N Gall Stones N PULMONARY EMBOLISM N AUTOIMMUNE DISEASE N Gynecological History Statement/Question Response Date of Last Mammogram 11/09/2021 Date of Last Colonoscopy 08/29/2016 Most Recent Bone Density 08/12/2020 Obstetrics History GPAL:G 0 P 0 0 0 0 Immunizations Vaccine Type Date Status Note Provider Nam e and Address Organization Details Recorded Time Influenza, split virus, quadrivalent, preservative 8 completed Not Available [facility] 01/23/2023 06:55:50 COVID-19, mRNA, LNP-S, bivalent, PF, 50 mcg/0.5 mL or 25mcg/0.25 mL dose 2 completed Not Available [facility] 01/23/2023 06:55:50 Influenza, high-dose, quadrivalent, PF 1 completed Not Available [facility] 01/23/2023 06:55:50 COVID-19 vaccine, vector-nr, rS-Ad26, PF, 0.5 mL 1 completed Not Available [facility] 01/23/2023 06:55:50 COVID-19 vaccine, vector-nr, rS-Ad26, PF, 0.5 mL 1 completed Not Available [facility] 01/23/2023 06:55:50 Influenza, high-dose, quadrivalent, PF 2 completed Not Available [facility] 01/23/2023 06:55:50 Influenza, high-dose, quadrivalent, PF 0 completed Not Available [facility] 01/23/2023 06:55:50 Influenza, split virus, quadrivalent, PF 5 completed Not Available [facility] 01/23/2023 06:55:50 Influenza, split virus, trivalent, preservative 4 completed Not Available [facility] 01/23/2023 06:55:50 Past Encounters Encounter ID Performer Location Encounter Start Date Encounter Closed Date Diagnosis/Indication Diagnosis SNOMED-CT Code Diagnosis ICD10 Code Diagnosis Note [id number] Kevin Arellano MD [facility] Internal Med [facility] [address] [address] 08/24/2020 00:00:00 08/24/2020 22:43:03 [id number] Kevin Arellano MD [facility] Internal Med [facility] [address] [address] 01/06/2021 00:00:00 01/08/2021 11:33:04 [id number] Kevin Arellano MD [facility] Internal Med [facility] [address] [address] 04/24/2021 00:00:00 05/21/2021 11:26:55 [id number] Kevin Arellano MD S_[facility] Internal Med [facility] [address] [address] 08/11/2021 00:00:00 08/13/2021 11:51:00 [id number] Kevin Arellano MD [facility] Internal Med [facility] [address] [place] [address] 1 11/03/2021 00:00:00 11/25/2021 21:16:45 [id number] Kevin Arellano MD [facility] Internal Med [facility] [address] [place] [address] 1 01/05/2022 00:00:00 01/28/2022 13:47:13 [id number] Kevin Arellano MD [facility] Internal Med [facility] [address] [place] [address] 1 03/07/2022 00:00:00 04/29/2022 12:09:25 [id number] Kevin Arellano MD [facility] Internal Med [facility] [address] [id number] 1 10/03/2022 11:14:41 10/03/2022 12:20:56 Hyperlipidemia 05349741 E78.5 Type 2 stefan betes mellitus without complication 478721181 E11.9 Renewal of prescription 087230476 Z76.0 Dyspnea 758559620 R06.00 Long-term drug therapy 537117127 Z79.526 [id number] Kevin Arellano MD [facility] Internal Med [facility] [address] [place] [id number] 01/22/2023 10:48:38 01/22/2023 11:43:22 Type 2 diabetes mellitus 12604958 E11.9 Dyslipidemia 818116476 E 78.5 Hypothyroidism 83915710 E03.9 Long-term drug therapy 841263073 Z79.899 Anxiety 51956926 F41.9 Migraine 96389897 G43.90 9 Obesity 979618302 E66.9 [id number] Prosper Gross DPM [facility] [place] [address] [place] [id number] 04/29/2024 14:15:54 04/30/2024 09:48:10 Health Concerns Section Related Observation LastModified by Organization Detai ls LastModified Time None Recorded Concern Status LastModified by Organization Details LastModified Time None Recorded Advance Directives Directive Y: Payers Insurance Date Sequence Insurance Name Policy Number Policy Brooks Covered Member ID Brooks Member ID Guarantor Name 07/26/2024 1 DONISTIVETH (MEDICARE REPLACEMENT/ ADVANTAGE - HMO) [id number] Ivelisse Rivera [id number] Ivelisse Rivera Notes Date Note Type Note Provider Name and Address Organization Details Recorded Time 10/03/2022 text/html Diabetes current ly not controlled will see what the number show but possibly Ozempic candidateStopped her oxygen need 6 minutes walk has some dyspneaGERD nausea vomiting no heartburnChronic back pain stableMigraines stableHyperlipidemia needs blood work checked not too bad with diet with regards to red meat Kevin Arellano MD [address], [place], [address], [email or web address] 10/13/2022 18:49:09 01/22/2023 text/html diabetes some na usea with OzempicGERD no heart burnobesity not losing weightLipitor diarrheamigraines appear to be stablehypothyroid no heat or cold intolerance Kevin Arellano MD [address], [place], [address], [email or web address] 01/22/2023 12:22:31 04/29/2024 text/html Pt RTC for regul ar NIDDM evaluation and care for feet joel. Preventative care visit. Prosper Gross DPM [address], [place], [address], [email or web address] 04/29/2024 16:23:47 OBGyn Episode No OBEpisode recorded.
--- OUTSIDE RECORDS SUMMARY | 2024-12-02 01:54 | XMS_ITS | Referral Summary ---
Author Organization [facility] [address] Address [address] [place] [phone] Care Team Providers Care Nephrology Nurse Name Role Phone Kevin Arellano MD Primary Care Provider + [phone] Allergies No known active allergies Medications montelukast (SINGULAIR) 10 mg tablet montelukast 10 mg tablet TAKE 1 TABLET BY MOUTH ONCE DAILY 05/20/18 70 Active omeprazole (PriLOSEC) 20 mg capsule omeprazole 20 mg capsule,delayed release Active fluticasone propionate (FLONASE) 50 mcg/actuation nasal spray fluticasone propionate 50 mcg/actuation nasal spray,suspension Use 2 spray(s) in each nostril once daily Active DULoxetine DR (CYMBALTA) 60 mg capsule Take 60 mg by mouth daily 04/18/20 22 Active cyclobenzaprine (FLEXERIL) 10 mg tablet cyclobenzaprine 10 mg tablet TAKE 1 TABLET BY MOUTH THREE TIMES DAILY NEEDED Active cholestyramine (QUESTRAN) 4 gram packet DISSOLVE AND TAKE ONE POWDER BY MOUTH DAILY 04/06/20 22 Active atorvastatin (LIPITOR) 10 mg tablet Lipitor 10 mg tablet Take 1 tablet every day by oral route. Active amitriptyline (ELAVIL) 75 mg tablet amitriptyline 75 mg tablet Take 1 tablet by mouth once daily Active losartan (COZAAR) 25 mg tablet Take 25 mg by mouth daily Active SUMAtriptan (IMITREX) 100 mg tabletIndicatio ns:Migraine Take 1 tablet (100 mg total) by mouth once as needed for migraine (headache) for up to 1 dose May repeat one time after 2 hours if needed. 9 tablet 5 06/18/19 Active topiramate (TOPAMAX) 50 mg tabletIndicatio ns:Intractable chronic migraine without aura and without status migrainosus TAKE 1 TABLET BY MOUTH AT BEDTIME FOR ONE WEEK, THEN INCREASE TO ONE TABLET TWICE DAILY 60 tablet 05/10/20 Active Active Problems No known active problems Social History Tobacco Use Types Packs/Day Years Used Date Smoking Tobacco: Never Tobacco Cessation:Counseling Given: Not Answered Personal Safety Answer Date Recorded Getting School Help Needed Not on file 04/30 Comments Unknown Sex and Gender Information Value Date Recorded Sex Assigned at Not on file Legal Sex Female 12:44 PM LABOR AND DELIVERY REGISTERED NURSE Gender Identity Not on file Sexual Orientation Not on file Last Filed Vital Signs Vital Sign Reading Time Taken Comments Blood Pressure 140/70 06/18/2022 11:52 AM LABOR AND DELIVERY REGISTERED NURSE Pulse 92 06/18/2022 11:52 AM LABOR AND DELIVERY REGISTERED NURSE Temperature - - Respiratory Rate 17 06/18/2022 11:5 2 AM LABOR AND DELIVERY REGISTERED NURSE Oxygen Saturation 94% 06/18/2022 11: 52 AM LABOR AND DELIVERY REGISTERED NURSE Inhaled Oxygen Concentration - - Weight 122.8 kg (270 lb 11.6 oz) 2022 11:52 AM LABOR AND DELIVERY REGISTERED NURSE Height 160 cm (5' 3) 06/18/2022 11:52 AM LABOR AND DELIVERY REGISTERED NURSE Body Mass Index 47.96 06/18/2022 11:52 AM LABOR AND DELIVERY REGISTERED NURSE Plan of Treatment Not on file Insurance [facility] MEDIC[facility] Care Teams Nephrology Nurse Relationship Specialty Start Date End Date Kevin Arellano MD PCP - General Internal Medicine 02/01/22
--- OUTSIDE RECORDS SUMMARY | 2024-12-02 01:54 | XMS_ITS | Clinical Summary ---
Author Organization [facility] [address] Address [address] [place] [phone] Care Team Providers Care Linen Tech Name Role Phone Kevin Arellano MD Primary Care Provider + [phone] Allergies No known active allergies Medications montelukast [...] Active Active Problems No known active problems Medical History Medical History Date Comments Hypertension Social History Tobacco Use Types Packs/Day Years Used Date Smoking Tobacco: Never Tobacco Cessation:Counseling Given: Not Answered Personal Safety Answer Date Recorded Getting School Help Needed Not on file 04/30 Comments Unknown Sex and Gender Information Value Date Recorded Sex Assigned at Not on file Legal Sex Female 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 FACILITY ATTENDANT Gender Identity Not on file Sexual Orientation Not on file Obstetrics History Last Filed Vital Signs Vital Sign Reading Time Taken Comments Blood Pressure 140/70 06/18/2022 11:52 AM RECREATION FACILITY ATTENDANT Pulse 92 06/18/2022 11:52 AM RECREATION FACILITY ATTENDANT Temperature - - Respiratory Rate 17 06/18/2022 11:5 2 AM RECREATION FACILITY ATTENDANT Oxygen Saturation 94% 06/18/2022 11: 52 AM RECREATION FACILITY ATTENDANT Inhaled Oxygen Concentration - - Weight 122.8 kg (270 lb 11.6 oz) 2022 11:52 AM RECREATION FACILITY ATTENDANT Height 160 cm (5' 3) 06/18/2022 11:52 AM RECREATION FACILITY ATTENDANT Body Mass Index 47.96 06/18/2022 11:52 AM RECREATION FACILITY ATTENDANT Plan of Treatment Health Maintenance Due Date Last Done Comments Breast Cancer Screening-Mammogram 1955 Colon Cancer Screening-Colonoscopy 1955 Depression Screening 1955 Hepatitis C Screening 1955 Osteoporosis Screening-Bone Density Scan 1955 DTaP/Tdap/Td Vaccine (1 - Tdap) 1964 Hepatitis B Screening 11/03/1971 Pneumococcal vaccine 65+ (1 of 2 - PCV) 1972 Zoster Vaccine (1 of 2) 11/03/2003 Well Visit 65+ 2018 Fall Risk Assessment 06/18/2023 06/18/2022 Covid-19 Vaccine (3 - 2023-2 5 season) 2024 04/17/2021, 07/26/2020 Influenza Vaccine (#1) 2025 2, 04/17/2021, 03/10/2020, Additional history exists Insurance [employer] MED[employer]ARE [facility] Address: [facility] [id number] [place] [address] Care Teams Linen Tech Relationship Specialty Start Date End Date Kevin Arellano MD PCP - General Internal Medicine 02/01/22
--- OUTSIDE RECORDS SUMMARY | 2024-12-02 01:54 | XMS_ITS | Continuity of Care Document ---
Author Organization [facility] Address [address] [place] [address] [address] [place] [address] Phone Care Team Providers Care Architectural Technologist Name Role Phone Renee Latif Unavailable Unavailable Procedures Procedure Date Office/outpatient Visit, Est Advance Directives Directive Yes / No Effective Date File Name No Information Encounters Encounter Description Practice Location Reason(s) For Visit Diagnoses Date Provider Providers Copied on Encounter Office/outpat ient Visit, Est [facility], [address] [place] [address] [address], [place], [place], [id number], [place] tel:[phone] [facility] [place] No Information [phone]hav[address] Duran. [address] [facility] [place] , [address], [place], [address], [place]. tel:[phone] Family History Family Member Type Diagnosis Age At Onset No Information Payers Payer name Insurance type Covered republican ID Authoriza tion(s) No Information Social History Type Description Quantity Date Captured Comments Sex Female Smoking Status No Information Chief Complaint And Reason For Visit No Information Reason For Referral Reason For Referral No Information History Of Present Illness Encounter Date Complaint History Of Prese nt Illness No Information Functional Status Date Functional Assessmen t No Information Instructions Date Instruction Additional Infor mation No Information Assessments Type Assessment Date No Information Patient Care Teams Name Effective Dates (start - stop) Status Members No Information
[2024-12-02 06:42] VITALS: BP 135/66; PULSE 86; RESP 24; TEMP 36.3; O2SAT 98; BMI 51.3
[2024-12-02] MEDS: LACTATED RINGERS 1,000 ML 150 ML IV CONT (06:58)
--- NOTE | 2024-12-02 06:59 | SUR.PREOP ---
Glucose at 155 in preop per dexcom.
--- NOTE | 2024-12-02 07:31 | P.PNAN_ITS ---
Anes - Initial Pre Proc Eval Procedure: Operation Date: 12/02/24 08:00 Proposed Procedures p Screening Colonoscopy - Gerard Chance MD Date/Time: 12/02/24 07:31 Surgeon: Gerard Chance MD Pre Op Diagnosis: screening colon Patient Data Age: 69 Gender: F Height: 1.6 m Weight: 131.6 kg Last Vital Signs Temp 97.4 F L 12/02/24 06:42 Pulse 86 12/02/24 06:42 Resp 24 H 12/02/24 06:42 BP 135/66 12/02/24 06:42 Pulse Ox 98 12/02/24 06:42 O2 Del Method Room Air 12/02/24 06:42 Allergies Allergy/AdvReac Type Severity Reaction Status Date / Time metformin Allergy Severe Diarrhea Verified 12/02/24 06:40 semaglutide (From Ozempic) Allergy Severe Diarrhea Verified 12/02/24 06:40 Gfurnhb-KML-CfD Reductase Allergy Severe Diarrhea Verified 12/02/24 06:40 Inhibitor Sulfa (Sulfonamide Allergy Severe Rash Verified 12/02/24 06:40 Antibiotics) oxaprozin Allergy Mild RASH Verified 12/02/24 06:40 corn and corn products Allergy Severe Diarrhea Uncoded 12/02/24 06:40 Home Medications ?Medication ?Instructions ?Recorded ?Confirmed ?Type amitriptyline 75 mg tablet 75 mg PO DAILY 08/04/24 12/02/24 History bempedoic acid 180 mg tablet 180 mg PO .2-3 x week 08/04/24 12/02/24 History (Nexletol) cyclobenzaprine 10 mg tablet 10 mg PO DAILY 08/04/24 12/02/24 History duloxetine 30 mg capsule,delayed 30 mg PO DAILY 08/04/24 12/02/24 History release duloxetine 60 mg capsule,delayed 60 mg PO DAILY 08/04/24 12/02/24 History release gabapentin 300 mg capsule 300 mg PO HS 08/04/24 12/02/24 History insulin degludec 100 unit/mL (3 75 unit subcut Q24H 08/04/24 12/02/24 History mL) subcutaneous pen (Tresiba FlexTouch U-100 insulin) insulin lispro 100 unit/mL 10 unit subcut TIDWM 08/04/24 12/02/24 History subcutaneous pen (Admelog SoloStar U-100 Insulin lispro) levothyroxine 50 mcg tablet 75 mcg PO 2XW 08/04/24 12/02/24 History (Levo-T) losartan 25 mg tablet 25 mg PO DAILY 08/04/24 12/02/24 History naltrexone 1.5 mg capsule 3 mg PO BID 08/04/24 12/02/24 History omeprazole 20 mg capsule,delayed 20 mg PO DAILY 08/04/24 12/02/24 History release acetaminophen 500 mg capsule 1,000 mg PO Q12H PRN pain 11/19/24 12/02/24 History cholestryam 4 g PO DAILY 11/19/24 12/02/24 History naproxen 500 mg tablet (Naprosyn) 220 mg PO Q12H PRN pain 11/19/24 12/02/24 History Patient hx anesthesia problems: none Family hx anesthesia problems: none Results Review: All pre-operative results and documents have been reviewed as part of the pre- operative evaluation. [facility] Social History Social History Smoking status: Never smoker Alcohol intake: never Substance use: never Substance use type: does not use Living arrangements: alone Spiritual care concerns: No Anes - Eval Final PreProcedure Day of Procedure 12/02/24 07:31 Patient weight: super morbidly obese Heart: regular rate and rhythm Lungs: clear to auscultation Airway: Mallampati scale class III Neurological: alert and oriented Last oral intake: >/= 8 hours ASA classification: IV Emergent: no Anesthetic plan: proceed Anesthesia type and monitoring: general GIVS and standard monitoring Results Review: All pre-operative results and documents have been reviewed as part of the pre- operative evaluation. Informed Consent: The patient's anesthetic plan and its attendant risks and benefits were discussed with the patient/family/POA. Questions were solicited and answers provided to the satisfaction of the patient/family/POA.
--- NOTE | 2024-12-02 07:49 | PM.IMHP ---
H&P: HPI History of Present Illness Date/Time: 12/02/24 07:49 Chief Complaint: History of colon polyps Narrative: The patient has a history of colonic polyps, the last colonoscopy was in 2019. Review of Systems Review of Systems: All systems reviewed & are unremarkable except as noted in HPI and below PMFSH Social History Social History Smoking status: Never smoker Alcohol intake: never Substance use: never Substance use type: does not use Living arrangements: alone Spiritual care concerns: No Meds Home Medications and Allergies Home Medications ?Medication ?Instructions ?Recorded ?Confirmed ?Type amitriptyline 75 mg tablet 75 mg PO DAILY 08/04/24 12/02/24 History bempedoic acid 180 mg tablet 180 mg PO .2-3 x week 08/04/24 12/02/24 History (Nexletol) cyclobenzaprine 10 mg tablet 10 mg PO DAILY 08/04/24 12/02/24 History duloxetine 30 mg capsule,delayed 30 mg PO DAILY 08/04/24 12/02/24 History release duloxetine 60 mg capsule,delayed 60 mg PO DAILY 08/04/24 12/02/24 History release gabapentin 300 mg capsule 300 mg PO HS 08/04/24 12/02/24 History insulin degludec 100 unit/mL (3 75 unit subcut Q24H 08/04/24 12/02/24 History mL) subcutaneous pen (Tresiba FlexTouch U-100 insulin) insulin lispro 100 unit/mL 10 unit subcut TIDWM 08/04/24 12/02/24 History subcutaneous pen (Admelog SoloStar U-100 Insulin lispro) levothyroxine 50 mcg tablet 75 mcg PO 2XW 08/04/24 12/02/24 History (Levo-T) losartan 25 mg tablet 25 mg PO DAILY 08/04/24 12/02/24 History naltrexone 1.5 mg capsule 3 mg PO BID 08/04/24 12/02/24 History omeprazole 20 mg capsule,delayed 20 mg PO DAILY 08/04/24 12/02/24 History release acetaminophen 500 mg capsule 1,000 mg PO Q12H PRN pain 11/19/24 12/02/24 History cholestryam 4 g PO DAILY 11/19/24 12/02/24 History naproxen 500 mg tablet (Naprosyn) 220 mg PO Q12H PRN pain 11/19/24 12/02/24 History Allergies Allergy/AdvReac Type Severity Reaction Status Date / Time metformin Allergy Severe Diarrhea Verified 12/02/24 06:40 semaglutide (From Ozempic) Allergy Severe Diarrhea Verified 12/02/24 06:40 Zbjiqyi-QUS-QuB Reductase Allergy Severe Diarrhea Verified 12/02/24 06:40 Inhibitor Sulfa (Sulfonamide Allergy Severe Rash Verified 12/02/24 06:40 Antibiotics) oxaprozin Allergy Mild RASH Verified 12/02/24 06:40 corn and corn products Allergy Severe Diarrhea Uncoded 12/02/24 06:40 Vital Signs Vital Signs - 24 hr 12/02/24 06:42 Temperature 97.4 F L Pulse Rate 86 Respiratory Rate 24 H Blood Pressure 135/66 Pulse Oximetry 98 Oxygen Delivery Room Air Exam Const: General: cooperative and healthy appearing Resp: Effort & Inspection: normal respiratory effort and able to speak in complete sentences Auscultation: clear to auscultation bilaterally Cardio: Rate: regular rate Rhythm: regular rhythm GI: Inspection: normal to inspection GI Palp: No No hepatosplenomegaly present Auscultation: normal bowel sounds Rectal Exam: deferred Skin: General skin exam: normal color Psych: Appearance: grossly normal Mental Status: mental status grossly normal Assessment and Plan Assessment and plan (1) History of colonic polyps: Code(s): Z86.0100 - Personal history of colon polyps, unspecified Status: Acute Assessment and Plan: The patient is deemed a good candidate for the procedure. Consent signed. Will proceed.
--- NOTE | 2024-12-02 08:10 | S_PTH ---
PATIENT: Ivelisse Rivera LOC: [facility] U#:[id number] AGE/SX: 69/F ROOM: RE12/02/[address]: Gerard Chance MD : 1955 BED: DIS: 12/02/2024 SPEC #: [id number] RECD: 12/02/24 10:53 STATUS: RAJIV REQ #: [id number] SIM: 12/02/24 08:[address]: Gerard Chance DEPT: [facility] Surgical RECD BY: Bonnie Hilton ENTERED: 12/02/24 10:53 SP TYPE: Surgical OTHR DR: Kevin ArelalnoMD Tissues: A - Colon Polypectomy Procedures: Hematoxylin and Eosin Stain Gross and Microscopic Level 4
[2024-12-02 08:12] VITALS: BP 76/38; PULSE 79; RESP 18; O2SAT 98
[2024-12-02 08:22] VITALS: BP 134/65; PULSE 80; RESP 20; O2SAT 100
[2024-12-02 08:32] VITALS: BP 147/50; PULSE 85; RESP 22; O2SAT 95
== END 2024-12-02 08:56 | disposition home or self-care (01) ==
PROVIDERS: PCP Internal Medicine; Referring Provider Internal Medicine; Visit Provider Internal Medicine Gastroenterology
PROC: 0DJD8ZZ Inspection of Lower Intestinal Tract, Via Natural or Artificial Opening Endoscopic (ICD-10-PCS; CPT 45378; principal; 2024-12-02 08:00)
DX: Z12.11 Encounter for screening for malignant neoplasm of colon (principal); D12.3 Benign neoplasm of transverse colon; K57.30 Diverticulosis of large intestine without perforation or abscess without bleeding; E66.01 Morbid (severe) obesity due to excess calories; Z68.43 Body mass index [BMI] 50.0-59.9, adult; Z79.4 Long term (current) use of insulin; Z79.1 Long term (current) use of non-steroidal anti-inflammatories (NSAID)
CPT/HCPCS: 45385; 88305; J2704; J7120